=== PATIENT | female | born 1945 | race Caucasian/White ===

== ENCOUNTER → 2017-01-24 16:41 | Outpatient (CLI) | payer MEDICARE, OTHER | END | disposition home or self-care (01) | LOC: D.MAMMO 15:15 | DX: Z12.31 Encounter for screening mammogram for malignant neoplasm of breast (principal) ==

== ENCOUNTER 2017-08-27 08:20 | Outpatient (CLI) | payer MEDICARE, OTHER ==
[~2017-08-27] VITALS: Ht 160 cm; Wt 90.0 kg
--- NOTE | ~2017-08-27 | HEMODYNAMI ---
PATIENT:ARTURO HERNANDEZ MEDICAL RECORD: [id number] : 43 LOCATION:FLAVIO ADMISSION DATE: 08/27/17 Generatedon:08/27/201713:51 Patient name: ARTURO HERNANDEZ Patient #: [id number] SSN: D OB: 1945 Date of study: 08/27/2017 Page: Of Hemodynamic Procedure Report Patient Data Patient Demographics Procedure consent was obtained First Name: ARTURO Gender: Female Last Name: DAVID : 1945 Middle Initial: KAYLA Age: 71 year(s) Patient #: [id number] Race: Unknown Additional ID: [id number] Contact details [address]: [address] [place] [address] State: [place] City: [place] Zip code: [address] Past Medical History Allergies Allergen Reaction Date Comments Reported Other allergy 08/27/2017 Percocet, penicillin, codeine, sulfa, adhesive Admission Admission Data Admission Date: 08/27/2017 Admission Time: 8:20 Height (in.): 65 BSA: 1.99 (m2) Height (cm.): 165.1 BMI: 33.78 (kg/m2) Weight (lbs.): 203 Weight (kg.): 92.08 Lab Results Lab Result Date: 08/27/2017 Lab Result Time: 0:00 CBC Name Units Result Min Max Hemoglobin g/dl 9.9 *-(----)-- 13.5 17.5 Procedure Procedure Types Cath Procedure Diagnostic Procedure LHC Coronaries only FFR/IVUS Intra-Coronary IVUS Initial PCI Procedure Coronary Stent Miscellaneous Procedures Moderate Sedation up to 15 minutes Procedure Description Procedure Date Procedure Date: 08/27/2017 Procedure Start Time: 10:21 Procedure End Time: 10:41 Procedure Staff Name Function Jenny Hernandez RT Scrub Cristi Ahmadi MD Performing Physician Priya Chavez RT Monitor Kareen Hernandez RN Nurse Procedure Data Cath Procedure Fluoroscopy Diagnostic fluoroscopy Total fluoroscopy Time: 4.8 time: 4.8 min min Diagnostic fluoroscopy Total fluoroscopy dose: dose: 1026 mGy 1026 mGy Contrast Material Contrast Material Type Amount (ml) Isovue 300 115 Entry Location Entry Primary Successful Side Size Upsize Upsize Entry Closure Succes sful Closure Location (Fr) 1 (Fr) 2 (Fr) Remarks Device Remarks Femoral Right 5 Fr 6 Fr Exoseal artery Short Estimated blood loss: 10 ml Diagnostic catheters Device Type Used For End Catheter Placement MULTIPACK JL 4.0 5Fr Procedure catheter MULTIPACK 3DRC 5Fr Procedure catheter Procedure Complications No complications Procedure Medications Medication Administration Route Dosage 0.9% NaCl I.V. 100 ml/hr Oxygen NC 2 l/min Lidocaine 2% added to field 20 Heparin Flush Bag added to field 2 bags (1000units/500ml NS) Fentanyl I.V. 50 mcg Versed I.V. 1 mg Versed I.V. 1 mg Fentanyl I.V. 50 mcg Versed I.V. 1 mg Versed I.V. 1 mg Heparin Bolus I.V. 4000 units Integrilin (Bolus I.V. 7.9 ml 2mg/ml) Integrilin (Bolus wasted 2.1 ml 2mg/ml) Plavix P.O. 600 mg Hemodynamics Rest HGB: 9.9 (g/dl) O2 Consumption: Estimated: 182.13 (ml/min) O2 Consumption indexe d: Estimated:91.52 (ml/min/m) Heart Rate: 70 (bpm) Snapshots Pre Cath Intra NCS Post Cath Vital Signs Time Heart Resp SPO2 etCO2 NIBP Rhythm Pain Sedation Rate (ipm) (%) (mmHg) (mmHg) Status Level (bpm) 9:55:16 94 15 95 133/59(90) NSR 0 (11) 10(A) , No pain 9:59:36 69 15 95 36.6 121/56(92) NSR 0 (11) 10(A) , No pain 10:03:56 69 21 98 125/55(88) NSR 0 (11) 10(A) , No pain 10:08:15 69 16 97 123/59(91) NSR 0 (11) 10(A) , No pain 10:12:32 69 18 95 117/53(85) NSR 0 (11) 10(A) , No pain 10:16:50 69 18 95 111/54(87) NSR 0 (11) 10(A) , No pain 10:21:06 69 19 95 113/52(85) NSR 0 (11) 9(A) , No pain 10:25:23 75 16 97 124/57(94) NSR 0 (11) 9(A) , No pain 10:29:39 77 14 96 115/55(86) NSR 0 (11) 9(A) , No pain 10:33:53 69 16 97 109/55(88) NSR 0 (11) 10(A) , No pain 10:38:07 69 11 98 114/55(85) NSR 0 (11) 10(A) , No pain Medications Time Medication Route Dose Verified Delivered Reason Not es Effectiveness by by 9:59:41 0.9% NaCl I.V. 100ml/hr Cristi Kareen used for Galdino Hernandez RN procedure 9:59:52 Oxygen NC 2 l/min Cristi Kareen Per physician Galdino Hernandez RN 10:00:00 Lidocaine 2% added 20ml Cristi Cristi for local to vial Galdino Ahmadi MD anesthetic field 10:00:14 Heparin Flush added 2 bags Cristi Cristi used for Bag to Galdino Ahmadi MD procedure (1000units/500ml field NS) 10:16:32 Fentanyl I.V. 50 mcg Cristi Kareen for sedation Galdino Hernandez RN 10:16:41 Versed I.V. 1 mg Cristi Kareen for sedation Galdino Hernandez RN 10:18:04 Versed I.V. 1 mg Cristi Kareen for sedation Galdino Hernandez RN 10:18:12 Fentanyl I.V. 50 mcg Cristi Kareen for sedation Galdino Hernandez RN 10:20:49 Versed I.V. 1 mg Cristi Kareen for sedation Galdino Hernandez RN 10:22:46 Versed I.V. 1 mg Cristi Kareen for sedation Galdino Hernandez RN 10:22:54 Heparin Bolus I.V. 4000 Cristi Kareen for abbe ified units Galdino Hernandez RN anticoagulation b y 10:32:53 Integrilin I.V. 7.9 ml Cristi Kareen for (Bolus 2mg/ml) Galdino Hernandez RN antiplatelet therapy 10:33:11 Integrilin wasted 2.1 ml Cristi devries (Bolus 2mg/ml) Galdino Hernandez RN antiplatelet therapy 10:35:50 Plavix P.O. 600 mg Cristi Hernandez RN antiplatelet therapy Procedure Log Time Note 9:36:53 Patient Height : 65 inches 9:36:57 Patient Weight : 203 lbs 9:37:59 Diagnostic Cath status Elective 9:38:01 Jenny Hernandez RT(R) sent for patient. Start room use. 9:38:02 Time tracking: Regular hours 9:38:11 Plan of Care:Hemodynamics will remain stable., Cardiac rhythm will remain stable., Comfort level will be maintained., Respiratory function will remain adequate., Patient/ family verbilizes understanding of procedure., Procedure tolerated without complication., Recovers from procedure without complications.. 9:46:12 Lab Result : Hemoglobin 9.9 g/dl 9:53:52 Patient received from Pre/Post Procedure Room to [facility] Alert and oriented. Tansferred to table in Supine position. 9:53:53 Warm blankets applied, and jonathon hugger turned on for patient comfort. 9:53:54 Correct patient and procedure confirmed by team. 9:53:55 Signed procedure consent form obtained from patient. 9:53:56 ECG and BP/O2 sat monitors applied to patient. 9:54:03 Vital chart was started 9:54:12 Rhythm: paced 9:54:13 Full Disclosure recording started 9:55:00 H&P Date Dictated: 08/04/2017 Within 30 days and on chart., H&P Addendum completed by physician on day of procedure. (MUST COMPLETE FOR ALL OUTPATIENTS). 9:55:01 Pre-op teaching completed and patient verbalized understanding. 9:55:01 Pre-procedure instructions explained to patient. 9:55:03 Family in waiting room. 9:55:07 Patient NPO since Midnight. 9:55:41 Patient allergic to Other allergyPercocet, penicillin, codeine, sulfa, adhesive 9:55:48 Is the patient allergic to Iodine/contrast media? No. 9:55:50 Is patient on blood thinner?Yes 9:55:50 Was the patient premedicated? No 9:56:32 Patient states last dose of Coumadin was taken 08/21/17 9:56:35 Patient diabetic? No. 9:56:39 Previous problem with sedation/anesthesia? No ? 9:56:41 Snore? Yes 9:56:44 Sleep apnea? No 9:56:45 Deviated septum? No 9:56:46 Sticks out tongue? Yes 9:56:46 Opens mouth fully? Yes 9:57:08 Airway obstruction? No ? 9:57:11 Dentures? No ? 9:57:15 Pre procedure: right dorsailis pedis pulse 1+ Palpable, but thready & weak; easily obliterated 9:57:17 Pre procedure: left dorsailis pedis pulse 1+ Palpable, but thready & weak; easily obliterated 9:57:21 Patient pain scale 0/10 ?. 9:57:35 IV patent on arrival in left forearm with 0.9% NaCl at [facility]. 9:57:38 Lab results completed and on chart. 9:57:41 Right groin area was prepped with chlora-prep and draped in sterile fashion 9:57:42 Sharps counted by scrub and verified by R.N. 9:57:42 Alarms reviewed by R. N. 9:59:41 0.9% NaCl 100ml/hr I.V. was administered by Kareen Hernandez RN; used for procedure; 9:59:52 Oxygen 2 l/min NC was administered by Kareen Hernandez RN; Per physician; 10:00:00 Lidocaine 2% 20ml vial added to field was administered by Cristi Ahmadi MD; for local anesthetic; 10:00:14 Heparin Flush Bag (1000units/500ml NS) 2 bags added to field was administered by Cristi Ahmadi MD; used for procedure; 10:08:18 Baseline sample Acquired. 10:08:35 Physician paged 10:14:02 Zero performed for pressure channel P1 10:15:42 Physician arrived 10:15:44 --------ALL STOP TIME OUT------ 10:15:45 Final Timeout: patient, procedure, and site verified with staff and physician. All members of the team are in agreement. 10:15:49 Right groin site verified by team. 10:16:09 Physical assessment completed. ASA score P 2 - A patient with mild systemic disease as per Cristi Ahmadi MD. 10:16:15 Sedation plan: IV Moderate Sedation Medication:Versed, Fentanyl 10:16:32 Fentanyl 50 mcg I.V. was administered by Kareen Hernandez RN; for sedation; 10:16:41 Versed 1 mg I.V. was administered by Kareen Hernandez RN; for sedation; 10:18:04 Versed 1 mg I.V. was administered by Kareen Hernandez RN; for sedation; 10:18:12 Fentanyl 50 mcg I.V. was administered by Kareen Hernandez RN; for sedation; 10:20:49 Versed 1 mg I.V. was administered by Kareen Hernandez RN; for sedation; 10:21:21 Procedure started. 10:21:41 Use device set Femoral Dx 10:21:42 ACIST Syringe (53859) opened to sterile field. 10:21:43 Medline Cath Pack ([id number]) opened to sterile field. 10:21:43 Bag Decanter (2002S) opened to sterile field. 10:21:44 DIAGNOSTIC WIRE .035 260cm J wire (962316) opened to sterile field. 10:21:44 SHEATH 5FR [place] (CBP828) opened to sterile field. 10:21:45 ACIST Hand Control (91492) opened to sterile field. 10:21:46 Tegaderm 4 x 4 (1626W) opened to sterile field. 10:21:46 DIAGNOSTIC Multipack 5Fr catheter set (MR6367) opened to sterile field. 10:21:46 ACIST Manifold (47775) opened to sterile field. 10:21:47 PERCUTANEOUS ENTRY 19GA needle opened to sterile field. 10:21:58 Local anesthetic to right femoral artery with Lidocaine 2% by Cristi Ahmadi MD.INITIAL ACCESS ONLY 10:22:08 A 5 Fr sheath was inserted into the Right Femoral artery 10:22:46 Versed 1 mg I.V. was administered by Kareen Hernandez RN; for sedation; 10:22:54 Heparin Bolus 4000 units I.V. was administered by Kareen Hernandez RN; for anticoagulation; verified b y 10:23:09 A MULTIPACK JL 4.0 5Fr catheter was advanced over the wire and used for Procedure. 10:23:12 LCA angiography performed. 10:24:22 Catheter removed. 10:24:29 A MULTIPACK 3DRC 5Fr catheter was advanced over the wire and used for Procedure. 10:24:33 RCA angiography performed. 10::59 Catheter removed. 10:25:25 Proceeding to intervention. 10:25:36 Sheath upsized to a 6 Fr Short. 10:25:48 6 Fr XBLAD 3.5 guide catheter was inserted over the wire 10:26:57 whisper wire advanced. 10::59 Wire advanced across lesion. 10:27:02 IVUS catheter advanced over wire. 10:32:36 IVUS catheter removed over wire. 10:32:53 Integrilin (Bolus 2mg/ml) 7.9 ml I.V. was administered by Kareen Hernandez RN; for antiplatelet therapy; 10:33:10 Inflation Number: 1 A INTEGRITY RX 3.0 x 22 stent ([id number]) was prepped and advanced across the Mid LAD. The stent was deployed at 13 JOSÉ for 0:10 (min:sec). 10:33:11 Integrilin (Bolus 2mg/ml) 2.1 ml wasted was administered by Kareen Hernandez RN; for antiplatelet therapy; 10:33:41 GUIDE 6FR XBLAD 3.5 catheter ([id number]) opened to sterile field. 10:33:41 [place] IVUS Catheter (83490K) opened to sterile field. 10:33:42 WHISPER 190cm wire ([id number]) opened to sterile field. 10:33:43 INFLATOR Merit BasixCompak (NA5839) opened to sterile field. 10:33:44 SHEATH 6FR [place] (GAN865) opened to sterile field. 10:34:26 Inflation Number: 2 A INTEGRITY RX 2.5 x 22 stent ([id number]) was prepped and advanced across the Mid LAD. The stent was deployed at 11 JOSÉ for 0:10 (min:sec). 10:34:38 Inflation number: 3 The stent balloon was then re-inflated across the Mid LAD to 17 JOSÉ for 0:10 (min:sec). 10:35:09 EXOSEAL 6Fr (EX600) opened to sterile field. 10:35:50 Plavix 600 mg P.O. was administered by Kareen Hernandez RN; for antiplatelet therapy; 10:39:07 Sheath removed intact; hemostasis achieved with Exoseal to the Right Femoral artery. 10:39:10 Procedure ended.(Physican Out) 10:39:21 Fluoroscopy time 04.80 minutes. 10:39:25 Fluoroscopy dose: 1026 mGy 10:39:25 Flurop Dose total: 1026 10:39:28 Contrast amount:Isovue 300 115ml. 10:39:30 Sharps counted by scrub and verified by R.N. 10:39:32 Insertion/operative site no bleeding no hematoma. 10:39:36 Post-op/insertion site Right Femoral artery dressed using a 4 x 4 and Tegaderm. 10:39:38 Post Procedure Pulses reassessed and unchanged 10:39:46 Post-procedure physical assessment completed. ASA score P 2 - A patient with mild systemic disease as per Cristi Ahmadi MD. 10:39:50 Post procedure rhythm: unchanged. 10:39:53 Estimated blood loss: 10 ml 10:39:55 Post procedure instruction explained to patient.Patient verbalizes understanding. 10:40:21 Procedure type changed to Cath procedure, Diagnostic procedure, LHC, Coronaries only, FFR/IVUS, Intra-Coronary IVUS Initial, PCI procedure, Coronary Stent, Miscellaneous Procedures, Moderate Sedation up to 15 minutes 10:40:23 Procedure and supply charges have been captured, reviewed, submitted and are correct. 10:41:31 Procedure Complication : No complications 10:41:34 Vital chart was stopped 10:41:35 See physician's report for complete and final results. 10:41:38 Report given to Pre/Post Procedure Room. 10:41:40 Patient transfered to Pre/Post Procedure Room with Stretcher. 10:41:43 Full Disclosure recording stopped 10:41:43 Procedure ended. 10:41:46 End room use (Document Last) 10:41:52 ACC-PCI Only Patient was given prescriptions, or instructed by Cristi Ahmadi MD to start/continue the following medications upon discharge: Plavix Intervention Summary Intervention Notes Time ActionType Lesion and Equipment Action# Pressure Duration Attributes Used 10:33:10 Place stent Mid LAD INTEGRITY RX 1 13 00:10 3.0 x 22 stent ([id number]) 10:34:26 Place stent Mid LAD INTEGRITY RX 2 11 00:10 2.5 x 22 stent ([id number]) 10:34:38 Reinflate Mid LAD INTEGRITY RX 3 17 00:10 stent 2.5 x 22 balloon stent ([id number]) Device Usage Item Name Manufacture Quantity Catalog Hospital Part Current Minimal Lot# / Number Charge Number Stock Stock Serial# Code ACIST Acist 1 28588 328268 421368 439947 20 Syringe Medical (90547) Systems Inc Bag Decanter Microtek 1 2001S 759407 81136 670589 5 () Medical Inc. Medline Cath Cardinal 1 [id number] 854060 33475 544449 5 Pack Health ([id number]) SHEATH 5FR Terumo 1 FYJ555 258066 768445 301261 40 [place] (BHJ725) DIAGNOSTIC St Hai 1 357647 184973 197432 753353 30 WIRE .035 260cm J wire (473284) ACIST Hand Acist 1 01942 867158 346452 518805 5 Control Medical (90666) Systems Inc ACIST Acist 1 41990 390249 908827 846726 5 Manifold Medical (96036) Systems Inc DIAGNOSTIC Cardinal 1 LG3402 876562 79651 396329 30 Multipack Health 5Fr catheter set (XZ3003) Tegaderm 4 x 3M 1 1626W 099408 360861 567690 5 4 (1626W) PERCUTANEOUS Cook Medical 1 U66636 408460 146597 5 ENTRY 19GA needle MULTIPACK JL Cardinal 1 724678 5 4.0 5Fr Health catheter MULTIPACK Cardinal 1 952316 5 3DRC 5Fr Health catheter INTEGRITY RX Medtronic 1 [id number] 662361 805852 044414 5 [id number] 3.0 x 22 stent ([id number]) [place] 1 09560O 579640 991311 651082 8 [place]ag[place] IVUS Catheter (80148Y) GUIDE 6FR Cardinal 1 [id number] 672078 802123 634184 10 XBLAD 3.5 Health catheter (27270483) WHISPER Hendrix 1 [id number] 770376 866058 408577 5 190cm wire Vascular (2193800SL) INFLATOR Go!Foton 1 JZ4781 287645 592757 902106 15 Go!Foton Medical BasixCompak (CD0188) SHEATH 6FR Terumo 1 HJP244 228308 219667 001867 40 [place] (LRY278) INTEGRITY RX Medtronic 1 [id number] 008685 509348 241184 5 [id number] 2.5 x 22 stent ([id number]) EXOSEAL 6Fr Cardinal 1 EX600 501676 703886 529756 10 (EX600) Health Signature Audit [place] Stage Time Signature Unsigned Intra-Procedure 08/27/2017 Priya Chavez 10:42:06 AM RT(R) Signatures Monitor : Priya Chavez Signature : RT Date : Time : [place] [id number] [place] [address]
[2017-08-27] MEDS ORDERED: TRAZODONE HCL150 MG PO (09:07)
[2017-08-27] MEDS ORDERED: LIPITOR20 MG PO (09:08)
[2017-08-27] MEDS ORDERED: PREVACID30 MG PO (09:08)
[2017-08-27] MEDS ORDERED: NORVASC10 MG PO (09:08)
[2017-08-27] MEDS ORDERED: ATIVAN1 MG PO (09:09)
[2017-08-27] MEDS ORDERED: BUPROPION XL150 MG PO (09:09)
[2017-08-27] MEDS ORDERED: COUMADIN2.5 MG PO (09:09)
[2017-08-27] MEDS ORDERED: ULTRAM50 MG PO (09:10)
[2017-08-27] MEDS ORDERED: FOLIC ACID1 MG PO (09:10)
[2017-08-27] MEDS ORDERED: ZESTRIL40 MG PO (09:10)
[2017-08-27] MEDS ORDERED: FUROSEMIDE40 MG PO (09:10)
[2017-08-27] MEDS ORDERED: PROZAC20 MG PO (09:10)
[2017-08-27 09:16] VITALS: BP 113/49; Ht 160 cm; Wt 90.0 kg
[2017-08-27 09:42] LABS: BASOPHILS 0.5 % (0-2); EOSINOPHILS 3.4 % (0-7); HEMATOCRIT 32.4 % (36.0-48.0); HEMOGLOBIN 9.9 g/dL (12-16); IMMATURE GRANULOCYTES 0.2 % (0-5); LYMPHOCYTES 21.4 % (15-50); MCH 25.6 pg (26.0-34.0); MCHC 30.6 g/dL (31.0-37.0); MCV 83.7 fL (80.0-100.0); MEAN PLATELET VOLUME 9.5 fL (7.4-10.4); MONOCYTES 10.8 % (2-11); NEUTROPHILS 63.7 % (40-80); PLATELET COUNT 120 10x3/uL (130-400); RBC 3.87 10x6/uL (4.00-5.40); RDW 16.1 % (11.5-14.5); WBC 4.2 10x3/uL (4.8-10.8)
[2017-08-27 09:48] LABS: INR 1.06 (0.85-1.17); PROTIME 13.4 SECONDS (11.6-15.0)
[2017-08-27 09:49] LABS: ANION GAP 12.4 mmol/L (8-16); CALCIUM 7.9 mg/dL (8.5-10.1); CARBON DIOXIDE 31.6 mmol/L (21.0-32.0); CREATININE - SERUM 1.2 mg/dL (0.6-1.3)
--- NOTE | 2017-08-27 11:15 | NUR ---
1115 DRESSING CDI, AREA SOFT AND NONTENDER. PEDAL PULSES PALPABLE, CALL LIGHT IN REACH. PT DENIES ANY C/O AT THIS TIME.
--- NOTE | 2017-08-27 11:46 | NUR ---
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 DENIES ANY C/O CHEST PAIN OR NAUSEA. DRESSING TO RIGHT GROIN IS CDI, AREA IS SOFT AND NONTENDER. PEDAL PULSES PALPABLE CAP REFILL IS BRISK. CALL LIGHT IN REACH. PO FLUIDS SERVED. NO FAMILY AT HOSPITAL, INSTRUCTED PT TO CALL FOR NEEDS AND PT VERBALIZES UNDERSTANDING.
--- NOTE | 2017-08-27 11:48 | NUR ---
1130 PT LARRY PO FLUIDS WITH NO C/O,. DRESSING RIGHT GROIN IS CDI, AREA IS SOFT AND NONTENDER. PEDAL PULSES PALPABLE. CALL LIGHT IN REACH. NSR, DENIES ANY C/O CHEST PAIN.
--- NOTE | 2017-08-27 11:49 | NUR ---
1145 DRESSING CDI, AREA SOFT AND NONTENDER. NSR, DENIES ANY C/O CHEST PAIN. CALL LIGHT IS IN REACH.
--- NOTE | 2017-08-27 12:45 | NUR ---
1230 PT SLEEPING, AWAKENS EASILY. DENIES ANY C/O. DRESSING RIGHT GROIN IS CDI,AREA SOFT AND NONTENDER. PEDAL PULSES PALPABLE.
--- NOTE | 2017-08-27 13:04 | NUR ---
DRESSING TO RIGHT GROIN IS CDI, AREA SOFT AND NONTENDER. PEDAL PULSES PALPABLE. PT DENIES ANY C/O.
[2017-08-27] MEDS ORDERED: PLAVIX75 MG PO (14:16)
--- NOTE | 2017-08-27 14:24 | NUR ---
HOB ELEVATED 45 DEGREES, SANDWICH AND PO FLUIDS SERVED. DRESSING TO RIGHT GROIN IS CDI. PT DENIES ANY C/O. CALL LIGHT IN REACH.
--- NOTE | 2017-08-27 14:45 | NUR ---
1445 ASSISTED PT WITH DRESSING FOR DC TO HOME. DRESSING TO RIGHT GROIN REMAINS CDI, AREA IS SOFT AND NONTENDER. IV DC'D WITH CATH INTACT.
--- NOTE | 2017-08-27 15:39 | NUR ---
1500 ASSISTED PT TO THE BATHROOM, PT VOIDED QS. DC INSTRUCTIONS HAVE BEEN REVIEWED AND COPIES TO PT. PLAVIX PRESCRIPTION, STENT CARD AND HOMECARE INSTRUCTIONS TO PATIENT. PT ESCORTED TO PRIVATE AUTO VIA WC BY NURSE WITH FRIEND DRIVING HER HOME.
--- NOTE | 2017-08-27 15:46 | OP ---
PATIENT NAME: ARTURO HERNANDEZ MEDICAL RECORD: [id number] :43 LOCATION:D.CAT ADMISSION DATE: SURGEON: GIANA PETERSON MD DATE OF OPERATION: 08/27/2017 PROCEDURES: 1. PTCA stent to LAD. 2. Intravascular ultrasound. 3. Left heart catheterization. 4. Selective coronary angiography. 5. Left ventriculogram. INDICATION: Angina and coronary artery disease. PROCEDURE IN DETAIL: After informed consent was obtained and after detailed explanation of risks, benefits as well as alternative therapies, the patient elected to proceed with angiogram and angioplasty. The right femoral area was prepped and draped in normal sterile fashion. The right femoral artery was cannulated via modified Seldinger technique with placement of 6-Georgian sheath. All catheters exchanged through this sheath. FINDINGS: Left ventriculogram was performed in standard 30-degree SHARMA view, reveals good cardiac wall motion throughout all segments. Overall ejection fraction estimated 60%. SELECTIVE CORONARY ANGIOGRAPHY: 1. Left main showed no significant angiographic disease. 2. Left anterior descending has greater than 70% stenosis proximally confirmed by intravascular ultrasound. 3. Left circumflex shows moderate irregularities, but no flow-limiting stenosis. 4. Right coronary artery has moderate irregularities, but no flow-limiting stenosis. PTCA STENT OF THE LAD: The stent used was a 3.0 x 22 and 2.5 x 22, both Integrity stents. Result was 0% residual stenosis. OVERALL IMPRESSION: Successful percutaneous transluminal coronary angioplasty stent of the left anterior descending going from greater than 70% initial stenosis proximally to 0% residual stenosis. TRANSINT:[id number] Voice Confirmation ID: [id number] DOCUMENT ID: [id number] GIANA PETERSON MD at 1546 CC: [id number] DICTATION DATE: 08/27/17 1043 FOURDRINIER MACHINE TENDER: 08/27/17 1235 [facility] CLI 08/27/17 [place] [id number]
== END 2017-08-27 15:00 | disposition home or self-care (01) ==
LOC: D.CATH 08:20
PROVIDERS: Internal Medicine Interventional Cardiology
DX: I25.119 Atherosclerotic heart disease of native coronary artery with unspecified angina pectoris (principal); R06.02 Shortness of breath; I49.5 Sick sinus syndrome; Z95.0 Presence of cardiac pacemaker; Z01.812 Encounter for preprocedural laboratory examination

== ENCOUNTER 2017-11-02 18:42 | Emergency (ER) | payer MEDICARE, OTHER ==
[2017-08-27 09:16] VITALS: BMI 35.1
[~2017-11-02 18:42] MED LIST: ATIVAN1 MG PO; BUPROPION XL150 MG PO; COUMADIN2.5 MG PO; FOLIC ACID1 MG PO; FUROSEMIDE40 MG PO; LIPITOR20 MG PO; NORVASC10 MG PO; PLAVIX75 MG PO; PREVACID30 MG PO; PROZAC20 MG PO; TRAZODONE HCL150 MG PO; ULTRAM50 MG PO; ZESTRIL40 MG PO
[2017-11-02 19:32] LABS: BASOPHILS 0.7 % (0-2); EOSINOPHILS 3.7 % (0-7); HEMATOCRIT 29.5 % (36.0-48.0); IMMATURE GRANULOCYTES 0.2 % (0-5); LYMPHOCYTES 24.1 % (15-50); MCH 25.4 pg (26.0-34.0); MCHC 30.5 g/dL (31.0-37.0); MCV 83.1 fL (80.0-100.0); MEAN PLATELET VOLUME 9.9 fL (7.4-10.4); MONOCYTES 11.7 % (2-11); NEUTROPHILS 59.6 % (40-80); PLATELET COUNT 113 10x3/uL (130-400); RBC 3.55 10x6/uL (4.00-5.40); RDW 17.4 % (11.5-14.5)
[2017-11-02 20:11] LABS: ALKALINE PHOSPHATASE 121 U/L (46-116); ALT (SGPT) 52 U/L (10-68); BILIRUBIN - TOTAL 0.27 mg/dL (0.2-1.3); CALC OSMOLALITY 280 mosm/kg (275-300); CALCIUM 8.4 mg/dL (8.5-10.1); CARBON DIOXIDE 26.1 mmol/L (21.0-32.0); CHLORIDE - SERUM 107 mmol/L (98-107); GLUCOSE 84 mg/dL (74-106); POTASSIUM - SERUM 3.7 mmol/L (3.5-5.1); PROTEIN - SERUM 6.3 g/dL (6.4-8.2); SODIUM 141 mmol/L (136-145); UREA NITROGEN 14 mg/dL (7-18); eGFR NON AFRICAN AMERICAN 58 mL/min (90-120)
[2017-11-02 20:20] LABS: CKMB 0.9 U/L (0.0-3.6); CREATINE KINASE 54 UL (21-215); PRO BNP 751 pg/mL (0-125)
[2017-11-02 20:24] LABS: TROPONIN-I < 0.017 ng/mL (0.000-0.060)
[2017-11-02 20:57] LABS: APTT 37.5 SECONDS (22.8-39.4); INR 1.5 (0.85-1.17); PROTIME 17.6 SECONDS (11.6-15.0)
== END 2017-11-02 21:00 | disposition home or self-care (01) ==
LOC: D.ER 18:42
PROVIDERS: Family Medicine
DX: R07.89 Other chest pain (principal); I10 Essential (primary) hypertension; I45.10 Unspecified right bundle-branch block

== ENCOUNTER → 2018-01-09 15:32 | Outpatient (CLI) | payer MEDICARE, OTHER ==
[2017-08-27 09:16] VITALS: BMI 35.1
== END | disposition home or self-care (01) ==
LOC: D.US 15:30
DX: R60.0 Localized edema (principal)

== ENCOUNTER 2018-02-14 15:11 | Emergency (ER) | payer MEDICARE, OTHER ==
[~2018-02-14] VITALS: Ht 160 cm; Wt 90.9 kg
[2018-02-14 15:20] VITALS: Ht 160 cm; Wt 90.9 kg
[2018-02-14] MEDS ORDERED: COUMADIN5 MG PO (15:24)
[2018-02-14 15:53] LABS: BASOPHILS 0.6 % (0-2); EOSINOPHILS 3.9 % (0-7); HEMOGLOBIN 10.5 g/dL (12-16); LYMPHOCYTES 17.3 % (15-50); MCHC 30.9 g/dL (31.0-37.0); MCV 84.2 fL (80.0-100.0); MONOCYTES 8.9 % (2-11); NEUTROPHILS 69.3 % (40-80); PLATELET COUNT 100 10x3/uL (130-400); RBC 4.04 10x6/uL (4.00-5.40); RDW 16.9 % (11.5-14.5); WBC 5.2 10x3/uL (4.8-10.8)
[2018-02-14 16:04] LABS: APTT 39.8 SECONDS (22.8-39.4); INR 1.39 (0.85-1.17); PROTIME 16.5 SECONDS (11.6-15.0)
[2018-02-14 16:07] LABS: ANION GAP 12.5 mmol/L (8-16); BILIRUBIN - TOTAL 0.59 mg/dL (0.2-1.3); CALCIUM 8.7 mg/dL (8.5-10.1); CREATININE - SERUM 1.1 mg/dL (0.6-1.3); POTASSIUM - SERUM 3.5 mmol/L (3.5-5.1); PROTEIN - SERUM 6.3 g/dL (6.4-8.2)
[2018-02-14 16:35] LABS: CKMB 1.4 U/L (0.0-3.6); CREATINE KINASE 70 UL (21-215)
[2018-02-14 16:40] LABS: C-REACTIVE PROTEIN < 0.2 mg/dL (0.0-0.9); TROPONIN-I < 0.017 ng/mL (0.000-0.060)
[2018-02-14 16:59] LABS: APPEARANCE CLEAR (CLEAR); BACTERIA MODERATE /hpf (NONE SEEN); BILIRUBIN NEGATIVE (NEGATIVE); CALCIUM OXALATE CRYSTALS RARE /hpf (NONE SEEN); COLOR DK YELLOW (YELLOW); GLUCOSE NEGATIVE (NEGATIVE); KETONE NEGATIVE (NEGATIVE); MUCUS >1+ /lpf (NONE SEEN); NITRITE NEGATIVE (NEGATIVE); PROTEIN NEGATIVE (NEGATIVE); RED CELLS - URINE OCC /hpf (0-5); UROBILINOGEN NORMAL (NORMAL); WHITE CELLS - URINE 0-5 /hpf (0-5)
[2018-02-14 18:47] VITALS: BP 142/78
[2018-02-18 19:12] LABS: LYME WB - IGG P18 AB Absent (()); LYME WB - IGG P23 AB Absent (()); LYME WB - IGG P28 AB Absent (()); LYME WB - IGG P30 AB Absent (()); LYME WB - IGG P39 AB Absent (()); LYME WB - IGG P41 AB Present (()); LYME WB - IGG P45 AB Absent (()); LYME WB - IGG P58 AB Absent (()); LYME WB - IGG P66 AB Absent (()); LYME WB - IGG P93 AB Absent (()); LYME WB - IGG WB INTERP Negative (()); LYME WB - IGM P23 AB Absent (()); LYME WB - IGM P39 AB Absent (()); LYME WB - IGM P41 AB Absent (()); LYME WB - IGM WB INTERP Negative (())
[2018-02-19 03:12] LABS: RMSF IGM 1.29 index (0.00-0.89)
== END 2018-02-14 18:49 | disposition home or self-care (01) ==
LOC: D.ER 15:11
PROVIDERS: Emergency Medicine
DX: M79.601 Pain in right arm (principal); T14.8XXA Other injury of unspecified body region, initial encounter; W57.XXXA Bitten or stung by nonvenomous insect and other nonvenomous arthropods, initial encounter; Y93.89 Activity, other specified; Y92.89 Other specified places as the place of occurrence of the external cause; S41.111A Laceration without foreign body of right upper arm, initial encounter; Z86.73 Personal history of transient ischemic attack (TIA), and cerebral infarction without residual deficits; I10 Essential (primary) hypertension; I50.9 Heart failure, unspecified; K21.9 Gastro-esophageal reflux disease without esophagitis

== ENCOUNTER 2018-05-18 12:37 | Emergency (ER) | payer MEDICARE, OTHER ==
[~2018-05-18] VITALS: Ht 160 cm; Wt 89.1 kg
[~2018-05-18 12:37] MED LIST changes: +COUMADIN5 MG PO
[2018-05-18 12:50] VITALS: Ht 160 cm; Wt 89.1 kg
[2018-05-18] MEDS ORDERED: CYCLOBENZAPRINE10 MG PO (17:27)
[2018-05-18 17:50] VITALS: BP 131/64
[2018-05-18 19:36] LABS: BASOPHILS 0.5 % (0-2); EOSINOPHILS 4.4 % (0-7); HEMATOCRIT 37.6 % (36.0-48.0); HEMOGLOBIN 12.3 g/dL (12-16); IMMATURE GRANULOCYTES 0.2 % (0-5); LYMPHOCYTES 20.9 % (15-50); MCH 30.7 pg (26.0-34.0); MCHC 32.7 g/dL (31.0-37.0); MCV 93.8 fL (80.0-100.0); MEAN PLATELET VOLUME 10.2 fL (7.4-10.4); MONOCYTES 7.5 % (2-11); NEUTROPHILS 66.5 % (40-80); PLATELET COUNT 85 10x3/uL (130-400); RBC 4.01 10x6/uL (4.00-5.40); WBC 5.9 10x3/uL (4.8-10.8)
[2018-05-18 19:54] LABS: BILIRUBIN - TOTAL 0.44 mg/dL (0.2-1.3); CALCIUM 8.5 mg/dL (8.5-10.1); CARBON DIOXIDE 26.8 mmol/L (21.0-32.0); POTASSIUM - SERUM 3.8 mmol/L (3.5-5.1); PROTEIN - SERUM 6.5 g/dL (6.4-8.2)
== END 2018-05-18 17:50 | disposition home or self-care (01) ==
LOC: D.ER 12:37
PROVIDERS: Family Medicine
DX: S32.059A Unspecified fracture of fifth lumbar vertebra, initial encounter for closed fracture (principal); X50.9XXA Other and unspecified overexertion or strenuous movements or postures, initial encounter; Y93.89 Activity, other specified; Y92.019 Unspecified place in single-family (private) house as the place of occurrence of the external cause; Z86.73 Personal history of transient ischemic attack (TIA), and cerebral infarction without residual deficits; I11.0 Hypertensive heart disease with heart failure; I50.9 Heart failure, unspecified; Z95.0 Presence of cardiac pacemaker

== ENCOUNTER 2018-05-18 18:50 | Emergency (ER) | payer MEDICARE, OTHER ==
[2018-05-18 18:50] VITALS: Ht 160 cm
[~2018-05-18 18:50] MED LIST changes: +CYCLOBENZAPRINE10 MG PO
[2018-05-18 21:22] VITALS: BP 134/68
== END 2018-05-19 00:30 | disposition other institution (70) ==
LOC: D.ER 18:50
DX: S32.059A Unspecified fracture of fifth lumbar vertebra, initial encounter for closed fracture (principal); X50.9XXA Other and unspecified overexertion or strenuous movements or postures, initial encounter; Y93.89 Activity, other specified; Y92.019 Unspecified place in single-family (private) house as the place of occurrence of the external cause; Z86.73 Personal history of transient ischemic attack (TIA), and cerebral infarction without residual deficits; I10 Essential (primary) hypertension; Z95.0 Presence of cardiac pacemaker

== ENCOUNTER 2018-05-19 19:11 | Inpatient (IN) | payer MEDICARE, OTHER ==
[~2018-05-19] VITALS: Ht 160 cm; Wt 88.9 kg
--- NOTE | ~2018-05-19 | CN ---
PATIENT NAME:ARTURO HERNANDEZ MEDICAL RECORD: [id number] : 43 LOCATION:D.MS [facility] ADMIT DATE: 05/19/18 ACCOUNT: [id number] CONSULTING PHYSICIAN: ED MULLINS MD REFERRING PHYSICIAN: NUBIA VERGARA MD DATE OF CONSULTATION: 05/20/2018 PSYCHIATRIC CONSULTATION IDENTIFYING DATA: The patient is 72 years old and she is admitted to the hospital on a voluntary basis because of an acute mental status change. She also has a compression fracture. CHIEF COMPLAINT: Confusion. HISTORY OF PRESENT ILLNESS: The patient's history is a little convoluted and history she gives me varies a little bit from the history in the record and minor details, but the overall point is she hurt her back recently and she has been in a lot of pain. She came to the hospital, felt like no one was helping her, and left AMA. A little while later, she showed up at Dr. Grayson's office very confused and he sent her here for hospitalization. She indicates that she was confused, but it was only because she had been in so much pain and she had not slept for a couple of days. I did not witness the event. She clearly is minimizing what happened and the records indicate that she was not sleepy, but confused. Right now, she is not confused and talking to me appropriately. She has a relatively normal mental status exam that I will detail below. She endorses a lot of depression and anxiety but not symptoms that would merit an inpatient care or present her as a high risk for self-harm or harming others. She denies substance abuse. MENTAL STATUS EXAMINATION: The patient is awake; alert; and oriented to person, place, time, and situation. Her mood is depressed. Her affect is appropriate. Thought processes are goal directed. Memory, concentration, and abstraction abilities are intact. She denies any intent to harm herself or others and she denies psychotic symptoms. ASSESSMENT: 1. Delirium, resolved. 2. Major depression, partially treated. PLAN: The patient is not acutely dangerous to herself or others and is showing no evidence of significant cognitive impairment. I do not see evidence of dementia. I did not witness the events that occurred recently; however, I would strongly suspect that this was a delirium induced by multiple medications that she was taking. She apparently has a long history of anxiety and has been on Ativan for a long time. She has also been recently taking narcotics for the back pain along with Flexeril. Probably, she has been in pain and was not sleeping as she said. She may have overtaken some of her medicine, it is unclear. Somewhere in this convoluted story, she somehow ended up driving to [place], but also tells me that she does not drive in [place], so I am not sure what to make of that. Other than this though, she is presenting a clear sensorium with some problems with depression and anxiety, but again she is not out of touch with reality and has no evidence of acute or direct dangerousness. My impression is she certainly does have a long history of anxiety and depression and I would recommend outpatient psychiatric care with CONSULT REPORT [id number] ARTURO HERNANDEZ either Dr. Fung or Dr. Paredes. TRANSINT:[id number] Voice Confirmation ID: [id number] DOCUMENT ID: [id number] ED MULLINS MD at 1305 CC: [id number] DICTATION DATE: 05/20/18 174 HIRED WORKER: 05/20/18 1837 ADM IN [facility] [address] [place] [id number]
--- NOTE | ~2018-05-19 | OP ---
PATIENT NAME: ARTURO HERNANDEZ MEDICAL RECORD: [id number] :43 LOCATION:[id number] ADMISSION DATE:05/19/18 SURGEON: ALEXIS GRAYSON MD DATE OF OPERATION: 05/21/2018 PREOPERATIVE DIAGNOSIS: L5 osteoporotic compression fracture. POSTOPERATIVE DIAGNOSIS: L5 osteoporotic compression fracture. PROCEDURE: L5 kyphoplasty. SURGEON: Alexis Grayson MD DESCRIPTION OF TECHNIQUE: After induction of TIVA, the patient was rolled prone on chest and hip rolls. Lumbar spine was prepped and draped in usual sterile fashion. On AP and lateral fluoro, the L5 pedicles were cannulated under fluoroscopic control. Kyphoplasty balloons were advanced through the cannula and inflated under fluoroscopic control. The balloons were deflated. The voids created were backfilled with methyl methacralate bone cement. Good position of the cement was confirmed on x-ray. Cannulae were withdrawn and final AP and lateral film showed good position of the cement. The patient was awakened in good condition and taken to recovery. All counts were reported as correct. Estimated blood loss was minimal. TRANSINT:[id number] Voice Confirmation ID: [id number] DOCUMENT ID: [id number] ALEXIS GRAYSON MD at 0837 CC: [id number] DICTATION DATE: 05/21/18 1639 CHILD PSYCHOLOGIST: 05/21/18 1700 ADM IN [place] [id number]
[2018-05-19 20:09] LABS: INR 2.05 (0.85-1.17); PROTIME 22.5 SECONDS (11.6-15.0)
[2018-05-19 20:14] LABS: ALKALINE PHOSPHATASE 79 U/L (46-116); ALT (SGPT) 57 U/L (10-68); BASOPHILS 0.4 % (0-2); BILIRUBIN - TOTAL 0.99 mg/dL (0.2-1.3); CALC OSMOLALITY 285 mosm/kg (275-300); CALCIUM 8.3 mg/dL (8.5-10.1); CARBON DIOXIDE 28.9 mmol/L (21.0-32.0); CHLORIDE - SERUM 104 mmol/L (98-107); CREATININE - SERUM 1.1 mg/dL (0.6-1.3); EOSINOPHILS 2.7 % (0-7); GLUCOSE 101 mg/dL (74-106); HEMATOCRIT 36.9 % (36.0-48.0); HEMOGLOBIN 12.2 g/dL (12-16); IMMATURE GRANULOCYTES 0.2 % (0-5); LYMPHOCYTES 13.2 % (15-50); MCH 30.5 pg (26.0-34.0); MCHC 33.1 g/dL (31.0-37.0); MCV 92.3 fL (80.0-100.0); MEAN PLATELET VOLUME 10.2 fL (7.4-10.4); MONOCYTES 6.4 % (2-11); NEUTROPHILS 77.1 % (40-80); PLATELET COUNT 89 10x3/uL (130-400); POTASSIUM - SERUM 3.4 mmol/L (3.5-5.1); PROTEIN - SERUM 6.4 g/dL (6.4-8.2); SODIUM 143 mmol/L (136-145); UREA NITROGEN 15 mg/dL (7-18); WBC 5.6 10x3/uL (4.8-10.8); eGFR NON AFRICAN AMERICAN 51 mL/min (90-120)
[2018-05-19 20:26] LABS: CKMB 1.7 U/L (0.0-3.6); CREATINE KINASE 166 UL (21-215); PRO BNP 1203 pg/mL (0-125); THYROID STIMULATING HORMONE 2.04 uIU/mL (0.36-3.74)
[2018-05-19 20:30] VITALS: BP 129/51
[2018-05-19 20:33] LABS: TROPONIN-I 0.016 ng/mL (0.000-0.060)
[2018-05-19 20:55] LABS: APPEARANCE CLEAR (CLEAR); BILIRUBIN NEGATIVE (NEGATIVE); COLOR YELLOW (YELLOW); GLUCOSE NEGATIVE (NEGATIVE); KETONE NEGATIVE (NEGATIVE); NITRITE NEGATIVE (NEGATIVE); PROTEIN NEGATIVE (NEGATIVE); UROBILINOGEN NORMAL (NORMAL)
[2018-05-19 21:30] VITALS: BP 136/53
[2018-05-20 00:09] VITALS: BP 133/67; BMI 34.8
[2018-05-20 05:07] VITALS: BP 134/64
[2018-05-20 05:08] LABS: BASOPHILS 0.2 % (0-2); EOSINOPHILS 0 % (0-7); HEMATOCRIT 34.8 % (36.0-48.0); HEMOGLOBIN 11.6 g/dL (12-16); IMMATURE GRANULOCYTES 0.2 % (0-5); LYMPHOCYTES 11.3 % (15-50); MCH 30.3 pg (26.0-34.0); MCHC 33.3 g/dL (31.0-37.0); MCV 90.9 fL (80.0-100.0); MEAN PLATELET VOLUME 9.8 fL (7.4-10.4); MONOCYTES 2.7 % (2-11); NEUTROPHILS 85.6 % (40-80); PLATELET COUNT 82 10x3/uL (130-400); RBC 3.83 10x6/uL (4.00-5.40); RDW 15.4 % (11.5-14.5); WBC 4.4 10x3/uL (4.8-10.8)
[2018-05-20 05:44] LABS: INR 2.03 (0.85-1.17); PROTIME 22.4 SECONDS (11.6-15.0)
[2018-05-20 05:45] LABS: APTT 41.9 SECONDS (22.8-39.4)
[2018-05-20 05:46] LABS: ALBUMIN 2.6 g/dL (3.4-5.0); ANION GAP 13.8 mmol/L (8-16); BILIRUBIN - TOTAL 0.61 mg/dL (0.2-1.3); CALCIUM 8.2 mg/dL (8.5-10.1); CARBON DIOXIDE 26.8 mmol/L (21.0-32.0); POTASSIUM - SERUM 3.6 mmol/L (3.5-5.1); PROTEIN - SERUM 5.8 g/dL (6.4-8.2)
[2018-05-20 08:48] VITALS: BP 122/46
[2018-05-20 12:10] VITALS: BP 139/53
[2018-05-20 12:13] VITALS: Ht 160 cm; Wt 88.9 kg
[2018-05-20 16:57] VITALS: BP 130/62
[2018-05-20 21:11] VITALS: BP 137/48
[2018-05-21 06:26] VITALS: BP 145/73
[2018-05-21 06:38] LABS: BASOPHILS 0.1 % (0-2); EOSINOPHILS 0.1 % (0-7); HEMATOCRIT 35.9 % (36.0-48.0); IMMATURE GRANULOCYTES 0.3 % (0-5); LYMPHOCYTES 9.9 % (15-50); MCH 30.4 pg (26.0-34.0); MCHC 33.4 g/dL (31.0-37.0); MCV 90.9 fL (80.0-100.0); MEAN PLATELET VOLUME 10.2 fL (7.4-10.4); MONOCYTES 5.6 % (2-11); RBC 3.95 10x6/uL (4.00-5.40); RDW 15.3 % (11.5-14.5)
[2018-05-21 06:55] LABS: PLATELET COUNT 109 10x3/uL (130-400); WBC 7.5 10x3/uL (4.8-10.8)
[2018-05-21 07:12] LABS: INR 1.37 (0.85-1.17); PROTIME 16.4 SECONDS (11.6-15.0)
[2018-05-21 07:31] LABS: ANION GAP 13.2 mmol/L (8-16); BILIRUBIN - TOTAL 0.72 mg/dL (0.2-1.3); CALCIUM 8.4 mg/dL (8.5-10.1); CARBON DIOXIDE 28.9 mmol/L (21.0-32.0); POTASSIUM - SERUM 3.1 mmol/L (3.5-5.1); PROTEIN - SERUM 6.2 g/dL (6.4-8.2)
[2018-05-21 08:45] VITALS: BP 147/51
[2018-05-21 13:41] VITALS: BP 143/47
[2018-05-21 18:26] VITALS: BP 121/52
[2018-05-21 23:12] VITALS: BP 122/73
[2018-05-22 04:44] VITALS: BP 121/57
[2018-05-22 05:38] LABS: BASOPHILS 0 % (0-2); EOSINOPHILS 0.6 % (0-7); HEMATOCRIT 34.3 % (36.0-48.0); HEMOGLOBIN 11.4 g/dL (12-16); IMMATURE GRANULOCYTES 0.4 % (0-5); LYMPHOCYTES 14.7 % (15-50); MCH 30.2 pg (26.0-34.0); MCHC 33.2 g/dL (31.0-37.0); MONOCYTES 10.4 % (2-11); NEUTROPHILS 73.9 % (40-80); PLATELET COUNT 97 10x3/uL (130-400); RBC 3.77 10x6/uL (4.00-5.40); RDW 15.3 % (11.5-14.5)
[2018-05-22 05:39] LABS: WBC 4.9 10x3/uL (4.8-10.8)
[2018-05-22 06:27] LABS: ALBUMIN 2.9 g/dL (3.4-5.0); BILIRUBIN - TOTAL 2.01 mg/dL (0.2-1.3); CALCIUM 8.1 mg/dL (8.5-10.1); CARBON DIOXIDE 33.8 mmol/L (21.0-32.0); CREATININE - SERUM 0.9 mg/dL (0.6-1.3); PROTEIN - SERUM 6.1 g/dL (6.4-8.2)
[2018-05-22 06:36] LABS: ANION GAP 11.8 mmol/L (8-16); POTASSIUM - SERUM 2.6 mmol/L (3.5-5.1)
[2018-05-22 08:36] VITALS: BP 144/70
[2018-05-22 10:16] LABS: MAGNESIUM - SERUM 1.5 mg/dL (1.8-2.4); PHOSPHOROUS 4.5 mg/dL (2.5-4.9)
[2018-05-22 12:07] VITALS: BP 155/53
[2018-05-22 22:28] VITALS: BP 115/58
[2018-05-23 04:59] VITALS: BP 130/60
[2018-05-23 05:22] LABS: BASOPHILS 0.3 % (0-2); EOSINOPHILS 1.1 % (0-7); HEMATOCRIT 38.2 % (36.0-48.0); HEMOGLOBIN 12.6 g/dL (12-16); IMMATURE GRANULOCYTES 0.3 % (0-5); LYMPHOCYTES 15.2 % (15-50); MCH 30.1 pg (26.0-34.0); MCV 91.2 fL (80.0-100.0); MEAN PLATELET VOLUME 10.1 fL (7.4-10.4); MONOCYTES 12.5 % (2-11); NEUTROPHILS 70.6 % (40-80); PLATELET COUNT 112 10x3/uL (130-400); RBC 4.19 10x6/uL (4.00-5.40); RDW 15.5 % (11.5-14.5)
[2018-05-23 05:28] LABS: WBC 7.1 10x3/uL (4.8-10.8)
[2018-05-23 05:46] LABS: ALBUMIN 3.1 g/dL (3.4-5.0); ANION GAP 12.4 mmol/L (8-16); BILIRUBIN - TOTAL 1.74 mg/dL (0.2-1.3); CALCIUM 8.1 mg/dL (8.5-10.1); CARBON DIOXIDE 30.8 mmol/L (21.0-32.0); CREATININE - SERUM 1.1 mg/dL (0.6-1.3); POTASSIUM - SERUM 3.2 mmol/L (3.5-5.1); PROTEIN - SERUM 6.4 g/dL (6.4-8.2)
[2018-05-23 06:58] VITALS: BP 150/56
[2018-05-23 16:14] VITALS: BP 152/67
[2018-05-23 20:27] VITALS: BP 119/38
[2018-05-24 01:03] VITALS: BP 118/49
[2018-05-24 04:59] VITALS: BP 106/42
[2018-05-24 05:52] LABS: BASOPHILS 0.5 % (0-2); HEMATOCRIT 38.2 % (36.0-48.0); HEMOGLOBIN 12.6 g/dL (12-16); IMMATURE GRANULOCYTES 0.3 % (0-5); LYMPHOCYTES 19.3 % (15-50); MCH 30.4 pg (26.0-34.0); MEAN PLATELET VOLUME 10.2 fL (7.4-10.4); MONOCYTES 10.8 % (2-11); NEUTROPHILS 66.1 % (40-80); PLATELET COUNT 107 10x3/uL (130-400); RBC 4.15 10x6/uL (4.00-5.40); RDW 15.4 % (11.5-14.5); WBC 6.6 10x3/uL (4.8-10.8)
[2018-05-24 06:28] LABS: ANION GAP 15.7 mmol/L (8-16); BILIRUBIN - TOTAL 2.19 mg/dL (0.2-1.3); CALCIUM 8.5 mg/dL (8.5-10.1); CARBON DIOXIDE 29.9 mmol/L (21.0-32.0); CREATININE - SERUM 1.1 mg/dL (0.6-1.3); POTASSIUM - SERUM 3.6 mmol/L (3.5-5.1); PROTEIN - SERUM 6.3 g/dL (6.4-8.2)
[2018-05-24 09:41] VITALS: BP 107/48
[2018-05-24 15:53] VITALS: BP 127/53
[2018-05-24 20:05] VITALS: BP 123/35
[2018-05-25 03:43] VITALS: BP 130/55
[2018-05-25 05:29] LABS: BASOPHILS 0.3 % (0-2); EOSINOPHILS 3.9 % (0-7); HEMOGLOBIN 12.9 g/dL (12-16); IMMATURE GRANULOCYTES 0.6 % (0-5); LYMPHOCYTES 17.4 % (15-50); MCH 30.6 pg (26.0-34.0); MCHC 33.1 g/dL (31.0-37.0); MCV 92.4 fL (80.0-100.0); MEAN PLATELET VOLUME 9.7 fL (7.4-10.4); MONOCYTES 8.9 % (2-11); NEUTROPHILS 68.9 % (40-80); RBC 4.22 10x6/uL (4.00-5.40); RDW 15.7 % (11.5-14.5)
[2018-05-25 05:33] LABS: PLATELET COUNT 140 10x3/uL (130-400); WBC 8.7 10x3/uL (4.8-10.8)
[2018-05-25 05:54] LABS: ALBUMIN 2.9 g/dL (3.4-5.0); ANION GAP 16.2 mmol/L (8-16); BILIRUBIN - TOTAL 2.71 mg/dL (0.2-1.3); CALCIUM 8.9 mg/dL (8.5-10.1); CARBON DIOXIDE 28.3 mmol/L (21.0-32.0); CREATININE - SERUM 1.2 mg/dL (0.6-1.3); POTASSIUM - SERUM 3.5 mmol/L (3.5-5.1); PROTEIN - SERUM 6.2 g/dL (6.4-8.2)
[2018-05-25 08:02] VITALS: BP 126/79
[2018-05-25] MEDS ORDERED: NORCO 10-325 TA1 TAB PO (08:40)
[2018-05-25 12:43] VITALS: BP 150/48
[2018-05-26 11:18] LABS: HEPATITIS C ANTIBODY >11.0 (0.0-0.9)
== END 2018-05-25 12:30 | DRG 515 ==
LOC: D.ER 19:11 → D.M2 20:20 → D.MS 20:20
PROVIDERS: Family Medicine; Neurological Surgery
PROC: 0QU03JZ Supplement Lumbar Vertebra with Synthetic Substitute, Percutaneous Approach (ICD-10-PCS; 2018-05-21)
PROC: 0QS03ZZ Reposition Lumbar Vertebra, Percutaneous Approach (ICD-10-PCS; principal; 2018-05-21 13:30)
DX: S32.059A Unspecified fracture of fifth lumbar vertebra, initial encounter for closed fracture (principal); G93.41 Metabolic encephalopathy; I10 Essential (primary) hypertension; I25.10 Atherosclerotic heart disease of native coronary artery without angina pectoris; K75.9 Inflammatory liver disease, unspecified; F17.200 Nicotine dependence, unspecified, uncomplicated; W01.0XXA Fall on same level from slipping, tripping and stumbling without subsequent striking against object, initial encounter; F41.8 Other specified anxiety disorders; M19.90 Unspecified osteoarthritis, unspecified site; Z95.0 Presence of cardiac pacemaker

== ENCOUNTER → 2018-06-10 18:06 | Outpatient (CLI) | payer MEDICARE, OTHER ==
[2018-05-20 12:13] VITALS: BMI 34.7
[~2018-06-10 18:06] MED LIST changes: +NORCO 10-325 TA1 TAB PO
[2018-06-10 18:40] LABS: INR 3.5 (0.85-1.17); PROTIME 34.4 SECONDS (11.6-15.0)
== END | disposition home or self-care (01) ==
LOC: D.LABREF 18:06
PROVIDERS: Family Medicine
DX: I50.9 Heart failure, unspecified (principal); Z51.81 Encounter for therapeutic drug level monitoring; Z79.01 Long term (current) use of anticoagulants

== ENCOUNTER → 2018-06-23 12:31 | Outpatient (CLI) | payer MEDICARE, OTHER ==
[2018-05-20 12:13] VITALS: BMI 34.7
== END | disposition home or self-care (01) ==
LOC: D.RAD 12:31
DX: M25.552 Pain in left hip (principal)

== ENCOUNTER 2019-02-25 17:10 | Inpatient (IN) | payer MEDICARE, OTHER ==
[2019-02-25] VITALS (15 sets, daily range): BP systolic 82–163; BP diastolic 47–100; BMI 25.4
[~2019-02-25] VITALS: Ht 162.6 cm; Wt 88.2 kg
--- NOTE | 2019-02-25 17:30 | NUR ---
WHILE ATTEMPTING TO REPOSITION ET TUBE ACCIDENTALLY DISLODGED. REINTUBATED BY DR MACDONALD WITHOUT DIFFICULTY
[2019-02-25 17:48] LABS: BASOPHILS 0.4 % (0-2); EOSINOPHILS 1.5 % (0-7); HEMATOCRIT 36.7 % (36.0-48.0); HEMOGLOBIN 11.9 g/dL (12-16); LYMPHOCYTES 19.5 % (15-50); MCH 30.5 pg (26.0-34.0); MCHC 32.4 g/dL (31.0-37.0); MCV 94.1 fL (80.0-100.0); MEAN PLATELET VOLUME 10.4 fL (7.4-10.4); MONOCYTES 7.5 % (2-11); NEUTROPHILS 68.1 % (40-80); PLATELET COUNT 141 10x3/uL (130-400); RDW 16.3 % (11.5-14.5); WBC 10.6 10x3/uL (4.8-10.8)
[2019-02-25 17:51] LABS: APPEARANCE TURBID (CLEAR); BILIRUBIN NEGATIVE (NEGATIVE); COLOR YELLOW (YELLOW); GLUCOSE NEGATIVE (NEGATIVE); KETONE NEGATIVE (NEGATIVE); NITRITE POSITIVE (NEGATIVE); PROTEIN 2+ mg/dL (NEGATIVE); UROBILINOGEN NORMAL (NORMAL)
[2019-02-25 17:52] LABS: EPITHELIAL CELLS NSEEN /hpf (0-5); WHITE CELLS - URINE >50 /hpf (0-5)
[2019-02-25 17:53] LABS: BACTERIA MANY /hpf (NONE SEEN)
[2019-02-25 18:05] LABS: PROTIME 65.5 SECONDS (11.6-15.0)
[2019-02-25 18:06] LABS: INR 7.9 (0.85-1.17)
--- NOTE | 2019-02-25 18:12 | NUR ---
TO CT VIA STRETCHER WITH RN, RT, CENTRAL OFFICE SUPERVISOR, AND CM.
--- NOTE | 2019-02-25 18:27 | NUR ---
FSBS= 129 MG/DL
--- NOTE | 2019-02-25 18:41 | NUR ---
SZ ACTIVITY AND POSTURING NOTED. MD NOTIFIED AND NEW ORDERS RCVD
[2019-02-25 18:53] LABS: ALBUMIN 2.4 g/dL (3.4-5.0); ALKALINE PHOSPHATASE 64 U/L (46-116); ALT (SGPT) 37 U/L (10-68); BILIRUBIN - TOTAL 1.09 mg/dL (0.2-1.3); CALC OSMOLALITY 291 mosm/kg (275-300); CALCIUM 7.8 mg/dL (8.5-10.1); CARBON DIOXIDE 31.1 mmol/L (21.0-32.0); CHLORIDE - SERUM 102 mmol/L (98-107); CREATINE KINASE 256 UL (21-215); CREATININE - SERUM 1.7 mg/dL (0.6-1.3); GLUCOSE 135 mg/dL (74-106); MAGNESIUM - SERUM 1.4 mg/dL (1.8-2.4); PROTEIN - SERUM 5.6 g/dL (6.4-8.2); SODIUM 144 mmol/L (136-145); THYROID STIMULATING HORMONE 5.27 uIU/mL (0.36-3.74); UREA NITROGEN 21 mg/dL (7-18); eGFR NON AFRICAN AMERICAN 31 mL/min (90-120)
[2019-02-25 19:03] LABS: POTASSIUM - SERUM 2.8 mmol/L (3.5-5.1); TROPONIN-I 0.584 ng/mL (0.000-0.060)
--- NOTE | 2019-02-25 19:10 | NUR ---
REPORT CALLED TO HEVER PENA BY SBAR FORMAT
--- NOTE | 2019-02-25 19:13 | NUR ---
TRANSPOERTED TO ICU VIA STRETCHER WITH RN, RT AND CM
[2019-02-25 19:18] LABS: CKMB 1.6 U/L (0.0-3.6)
--- NOTE | 2019-02-25 19:45 | NUR ---
RECEIVED PT FROM THE ER VIA STRECHTER TO ROOM 2302. PT WAS TRANSFERRED TO ICU AND ATTACHED TO ICU MONITORS. ADMISSION ASSESSMENT COMPLETED, SEE FLOWSHEET FOR DETAILS. PT'S FRIENDS PRESENT, UNABLE TO PROVIDE ANY MEDICAL HX BUT DOES HAVE PT'S PRESCRIPTIONS PRESENT WELL POA PAPERS. SPOKE WITH LANCE CRAWFORD REGARDING PT'S CRITICAL LAB RESULTS AND PT'S ELEVATED HR, ORDERS RECEIVED. NO FURTHER NEEDS NOTED AT THIS TIME. WILL CONTINUE TO MONITOR.
--- NOTE | 2019-02-25 21:00 | NUR ---
PT IS IN BED INTUBATED ON THE VENT. CARIDOLOGY WAS CONSULTED REGARDING PT'S HR AND PULMONOLOGY WAS CONSULTED REGARDING PT BEING ON VENT. BOTH CONSULTS CALLED IN AND ORDERS RECEIVED. PT'S GRANDSON CALLED REQUESTING TO SPEAK WITH HIS GRANDMOTHER, UPDATE GIVEN. NO ACUTE CHANGES NOTED AT THIS TIME. WILL CONTINUE TO MONITOR.
[2019-02-25 21:21] LABS: CKMB 5.5 U/L (0.0-3.6)
[2019-02-25 21:22] LABS: CREATINE KINASE 333 UL (21-215)
[2019-02-25 21:23] LABS: TROPONIN-I 4.037 ng/mL (0.000-0.060)
--- NOTE | 2019-02-25 23:00 | NUR ---
REASSESSMENT COMPLETED, SEE FLOWSHEET FOR DETAILS. PT IS LAYING IN BED INTUBATED AND ON THE VENT. NO ACUTE CHANGES NOTED. HR IS CONTROLLED AT THIS TIME. NO SIGNS OF ACUTE DISTRESS. WILL CONTINUE TO MONITOR.
[2019-02-26] VITALS (54 sets, daily range): BP systolic 87–134; BP diastolic 45–76; Ht 162.6 cm; Wt 88.2 kg
--- NOTE | 2019-02-26 01:00 | NUR ---
PT IS IN BED INTUBATED. PT REPOSITIONED FOR COMFORT. ORAL CARE PERFORMED. NO SIGNS OF ACUTE DISTRESS NOTED. WILL CONTINUE TO MONITOR.
[2019-02-26 01:50] LABS: UDS - AMPHET NEGATIVE QUAL (NEGATIVE); UDS - BARB NEGATIVE QUAL (NEGATIVE); UDS - BENZO POSITIVE QUAL (NEGATIVE); UDS - COCAINE NEGATIVE QUAL (NEGATIVE); UDS - OPIATE NEGATIVE QUAL (NEGATIVE); UDS - PCP NEGATIVE QUAL (NEGATIVE); UDS - THC NEGATIVE QUAL (NEGATIVE)
[2019-02-26 02:59] LABS: APTT 77.7 SECONDS (22.8-39.4)
--- NOTE | 2019-02-26 03:00 | NUR ---
REASSESSMENT COMPLETED, SEE FLOWSHEET FOR DETAILS. PT IS IN BED INTUBATED AND ON THE VENT. NO SEDATION IS ON AND PT IS NOT RESPONSIVE/WILL NOT FOLLOW COMMANDS. THERE IS SOME MOVEMENT OF THE HEAD AND EXTREMITIES. NO SIGNS OF ACUTE DISTRESS. WILL CONTINUE TO MONITOR.
[2019-02-26 03:02] LABS: INR 6.57 (0.85-1.17); PROTIME 56.6 SECONDS (11.6-15.0)
[2019-02-26 03:20] LABS: CKMB 3.2 U/L (0.0-3.6); CREATINE KINASE 282 UL (21-215)
[2019-02-26 03:24] LABS: TROPONIN-I 3.852 ng/mL (0.000-0.060)
--- NOTE | 2019-02-26 04:38 | NUR ---
CHANGED FIO2 TO 50% PER MORNING ABG
--- NOTE | 2019-02-26 05:00 | NUR ---
IO COLLECTED DAILY WEIGHT COLLECTED VSS WILL CONTINUE TO MONITOR.
[2019-02-26 05:41] LABS: BASOPHILS 0.1 % (0-2); EOSINOPHILS 0 % (0-7); HEMATOCRIT 33.1 % (36.0-48.0); IMMATURE GRANULOCYTES 0.4 % (0-5); LYMPHOCYTES 7.9 % (15-50); MCH 30.2 pg (26.0-34.0); MCHC 33.2 g/dL (31.0-37.0); MEAN PLATELET VOLUME 10.6 fL (7.4-10.4); NEUTROPHILS 83.6 % (40-80); RBC 3.64 10x6/uL (4.00-5.40); RDW 16.2 % (11.5-14.5)
[2019-02-26 05:44] LABS: MCV 90.9 fL (80.0-100.0); PLATELET COUNT 181 10x3/uL (130-400); WBC 14.2 10x3/uL (4.8-10.8)
[2019-02-26 05:58] LABS: ALBUMIN 2.2 g/dL (3.4-5.0); ANION GAP 11.8 mmol/L (8-16); BILIRUBIN - TOTAL 1.01 mg/dL (0.2-1.3); CALCIUM 7.3 mg/dL (8.5-10.1); CARBON DIOXIDE 29.9 mmol/L (21.0-32.0); CREATININE - SERUM 1.5 mg/dL (0.6-1.3); PROTEIN - SERUM 5.4 g/dL (6.4-8.2)
[2019-02-26 05:59] LABS: POTASSIUM - SERUM 2.7 mmol/L (3.5-5.1)
--- NOTE | 2019-02-26 06:30 | NUR ---
PT HAD LARGE LIQUID BROWN STOOL. BATH AND LINEN CHANGED. SKIN INTACT PLACED MEPILEX TO BUTTOCK FOR PROTECTION.
--- NOTE | 2019-02-26 07:22 | NUR ---
REPORT RECEIVED. PT ON VENT A/C. SETTINGS PER RT. PT HAS NGT TO LIS. PT HAS BEAR AND PIV IN RIGHT FOREARM AND IN RIGHT BREAST. CARDIZEM AND D5LR HANGING. PT HAS BRUISES SCATTERED OVER BODY. ASSESSMENT DONE. PT REPOSITIONED TO HER LEFT SIDE. VSS. WILL CONTINUE TO MONITOR.
--- NOTE | 2019-02-26 09:17 | NUR ---
SPOKE WITH PT'S FAMILY. UPDATED. VENT SETTINGS CHANGED PER RT. SUPERVISOR RECEIVING AND PROCESSING JUST FINISHED WITH PT. REPOSITIONED AND SUCTIONED. VSS. 3RD POTASSIUM RIDER INFUSING.
--- NOTE | 2019-02-26 09:44 | NUR ---
DR ESCOBAR WANTS PT TO GET CVL. WANTS TO STABILIZE PT THEN SEND PT TO ANOTHER FACILITY THAT HAS A NEUROLOGIST ON STAFF.
--- NOTE | 2019-02-26 11:30 | NUR ---
DR SOUSA IN WITH PT. ADJUSTED VENT SETTINGS. RESP SET AT 15; O2 45%; TIDAL VOLUME 500; PEEP 5. WILL CONTINUE TO MONITOR.
--- NOTE | 2019-02-26 13:09 | NUR ---
PROPOFOL INITIATED. RIGHT SUBCLAVIAN CVL PLACED. CHG BATH GIVEN. PT REPOSITIONED.
[2019-02-26 13:36] LABS: CKMB 3.2 U/L (0.0-3.6)
[2019-02-26 13:37] LABS: CREATINE KINASE 397 UL (21-215); TROPONIN-I 1.731 ng/mL (0.000-0.060)
--- NOTE | 2019-02-26 15:49 | NUR ---
EMERGENCY CONTACT, NUSRAT, BROUGHT POA PAPERWORK TO ICU. MADE COPIES TO PUT ON CHART. AWARE OF PT BEING IN IR TO FIX CVL PLACEMENT.
--- NOTE | 2019-02-26 16:15 | MORECARE ---
CASE MANAGEMENT DISCHARGE SUMMARY PATIENT: ARTURO HERNANDEZ UNIT: [id number] ADM DATE: 02/25/19 AGE: 73 : 43 SEX: F ROOM/BED: D.2302 AUTHOR: CIPRIANO TOMLINSON PHYSICIAN: REFERRING PHYSICIAN: STEVIE ALMANZAR MD DATE OF SERVICE: 02/26/19 Discharge Plan Patient Name: ARTURO HERNANDEZ Facility: [facility]:[place] : 1945 Planned Disposition: Anticipated Discharge Date: Discharge Date: Expected LOS: Initial Reviewer: [email or web address] Initial Review Date: 02/25/2019 Generated: 02/26/19 5:15 pm Comments DCP- Discharge Planning Updated by [email or web address]: Yanique Garsia on 02/26/19 3:[address] CM attempted to visit with patient regarding discharge planning / needs. Patient is currently on vent / sedated and no family available. CM attempted to get in touch with POA listed but no answer. CM will continue to follow and assist as needed with discharge planning / needs. Patient Name: ARTURO HERNANDEZ Page [phone] at 1615 All edits/amendments must be made on the electronic document DICTATION DATE: 02/26/191613 COMPRESSOR REPAIRER: ANAYELI 02/26/191613 RPT#: [id number] DC DATE: STATUS: ADM IN [facility] [address] [place] [address] END OF REPORT
--- NOTE | 2019-02-26 17:17 | NUR ---
BS 139. NO INSULIN COVERAGE NEEDED. BLOOD DRAWN FROM CVL FOR POTASSIUM AND SENT TO LAB. PT SUCTIONED AND REPOSITIONED. VSS. BEAR IN PLACE. RIGHT SUBCLAVIAN WITH PROPOFOL, CARDIZEM, AND D5LR INFUSING. WILL CONTINUE TO MONITOR.
--- NOTE | 2019-02-26 19:00 | NUR ---
REPORT RECEIVED INITIAL ASSESSMENT COMPLETE. SEDATED WITH DIPRIVAN DOES OPEN EYES TO VERBAL STIMULI. RIGHT SUBCLAVIAN PATENT SEE IV FLOWSHEET. BRUISING NOTED ALL OVER BODY FROM PREVIOUS FALLS AT HOME PER REPORT. PT HAS PACER BUT PER REPORT WHEN INTEROGATED REP STATED PACER NEEDED BATTERIES. CM READING SR WITH ALARMS ON AND AUDIBLE. WILL CONT TO MONITOR
--- NOTE | 2019-02-26 21:00 | NUR ---
REPOSITIONED FOR COMFORT. SUCTIONED LARGE AMOUNT CLEAR SECRETIONS ORALLY AND VIA ORAL ETT. CARDIZEM GTT DECREASED DOWN TO 10 MG
--- NOTE | 2019-02-26 23:00 | NUR ---
REASSESSMENT MADE NO CHANGES. REPOSITIONED FOR COMFORT VSS DECREASED CARDIZEM DOWN TO 8
[2019-02-27] VITALS (44 sets, daily range): BP systolic 77–139; BP diastolic 36–87
--- NOTE | 2019-02-27 03:00 | NUR ---
REASSESSMENT SEE FLOWSHEET. ORAL CARE DONE AND SUCTIONED VIA ORAL ETT AND ORALLY. CARDIZEM AT 5MG
[2019-02-27 05:08] LABS: BASOPHILS 0.1 % (0-2); EOSINOPHILS 0.7 % (0-7); HEMATOCRIT 27.9 % (36.0-48.0); HEMOGLOBIN 9.2 g/dL (12-16); IMMATURE GRANULOCYTES 0.5 % (0-5); LYMPHOCYTES 15.9 % (15-50); MCH 30.1 pg (26.0-34.0); MCV 91.2 fL (80.0-100.0); MEAN PLATELET VOLUME 9.3 fL (7.4-10.4); MONOCYTES 9.7 % (2-11); NEUTROPHILS 73.1 % (40-80); PLATELET COUNT 178 10x3/uL (130-400); RBC 3.06 10x6/uL (4.00-5.40); RDW 16.7 % (11.5-14.5); WBC 17.4 10x3/uL (4.8-10.8)
[2019-02-27 05:23] LABS: INR 1.91 (0.85-1.17); PROTIME 21.2 SECONDS (11.6-15.0)
[2019-02-27 05:42] LABS: BILIRUBIN - TOTAL 0.92 mg/dL (0.2-1.3); CREATININE - SERUM 1.2 mg/dL (0.6-1.3); PHOSPHOROUS 2.2 mg/dL (2.5-4.9); PROTEIN - SERUM 4.9 g/dL (6.4-8.2)
[2019-02-27 05:46] LABS: ANION GAP 8.4 mmol/L (8-16); POTASSIUM - SERUM 3.4 mmol/L (3.5-5.1); TROPONIN-I 1.038 ng/mL (0.000-0.060)
--- NOTE | 2019-02-27 06:13 | NUR ---
LAB REPORTING LOW POTASSIUM/MAG LEVELS TREATING PER ELECTROLYTE PROTOCOL. PT STILL SEDATED WITH DIPRIVAN LIGHTLY DOES OPEN EYES AND SQUEEZES HANDS TO COMMAND
--- NOTE | 2019-02-27 06:45 | NUR ---
CM ALARMING PVC NOTED ON CM PTS MAG AND POTASSIUM BOTH LOW AND BEING TREATED PER ELECTROLYTE PROTOCOL.
--- NOTE | 2019-02-27 07:30 | NUR ---
LIFTS EYE BROWS TO STIMULATION. TRIES TO OPEN EYES. ETT SECURE TO VENT. BILATERAL LUNG SOUNDS EQUAL. RIGHT SUBCLAVIAN TRIPLE LUMEN CENTRAL LINE INFUSING WITH CARDIZEM AT 5 MG HOUR, KCL RIDER, MAG RIDER. D5LR INFUSING AT 80 ML HOUR. BEAR CATH DRAINING CLOUDY YELLOW URINE.SCD ON LOWER LEGS. MONITOR SR. HEAD OF BED ELEVATED AT 30
--- NOTE | 2019-02-27 08:14 | NUR ---
ANTONY WALSH HERE STATES THE DAUGHTER AND GRANDAUGHTERS ARE COMING THIS AFTERNOON, THEY ARE PLANNING ON TERMINAL EXTUBATION AFTER THE FAMILY HAVE SPENT TIME WITH HER. DISCUSS TERMINAL EXTUBATION, AND MORE OPEN VISITATION FOR FAMILY. QUESTIONS ANSWERED UP DATE GIVEN
--- NOTE | 2019-02-27 09:00 | NUR ---
GRANDCHILDREN HERE UPDATE GIVEN. DISCUSS TERMINAL EXTUBATION. ALLOWING FAMILY TO STAY WITH PATIENT.
--- NOTE | 2019-02-27 10:48 | NUR ---
REPOSITIONED. OPENING EYES WHEN DID NOT OBEY COMMANDS, TOLERATED WELL NO DISTRESS. RESP THERAPY NOTIFIED NEW ORDER TO CHANGE AC TO 12. GRANDCHILDREN HERE. EMOTIONAL SUPPORT GIVEN
--- NOTE | 2019-02-27 11:30 | NUR ---
DR. SOUSA HERE. INFORMED OF POA PLANS. INSTRUCTED TO TURN OFF DIPRIVAN TO SEE WHAT HAPPENS. DIPIRVAN TURNED OFF.PATIENT WAKING UP. MAKES EYE CONTACT. NODING HEAD TO YES AND NO QUESTIONS. HANDS SQUEEZED LIGHTLY. PATIENT STARTED GAGGING AND RESP IN 30'S DIPRIVAN TURNED ON AT 10 MCG/KG/MIN. PATIENT STILL WAKES UP EASILY RESP. RATE NORMAL. PATIENT COMFORTABLE
--- NOTE | 2019-02-27 12:00 | NUR ---
GRANDCHILDREN HERE EMOTIONAL SUPPORT GIVEN. PATIENT AWAKES EASILY TO VERBAL STIMULI MAKES EYE CONTACT. DOES NODE HEAD TO YES AND NO QUESTIONS. NO DISTRESS. WILL GRAP ETT AND NG TUBE WHEN RESTRAINTS OFF. PATIENT TRYING TO GET UP OUT OF BED. DIPRIVAN AT 20 MCG/KG/MIN TO KEEP CALM IN BED.
--- NOTE | 2019-02-27 14:00 | NUR ---
NO CHANGES. GRANDCHILDREN AT BEDSIDE. KICKING LEGS OFF BED. AWAKES MAKES EYE CONTACT. NODES HEAD TO YES AND NO QUESTIONS. NO DISTRESS
--- NOTE | 2019-02-27 16:00 | NUR ---
NO CHANGES NO RESP DISTRESS. AWAKES EASILY AT 20 MCG/KG/MIN OF DIPIRVAN. DOES NOT ASSIST WITH TURNING SELF. WILL WEAKLY OIL AND GAS WELL TREATMENT OPERATOR HANDS ON REQUEST. MOVING LEGS OFF BED. WILL REACH FOR ETT AND NG WHEN NOT RESTRAINTED. HEAD OF BED ELEVATED 30 DEGREES. HIBCLENS BATH GIVEN. COMPLETE LINEN CHANGE SMALL LIQUID BROWN STOOL. NO SKIN BREAKDOWN NOTED. BRUISING ALL OVER BODY. SCD REPLACED ON LOWER LEGS. PATIENT TOLERATED WELL. MONITOR SR . NG TO LOW INTERMITTENT SUCTION LIGHT BROWN DRAINAGE. BEAR CATH PATENT CONCENTRATED URINE.
--- NOTE | 2019-02-27 18:00 | NUR ---
FAMILY AT BEDSIDE. NO CHANGES IN PATIENT. DIPRIVAN TUBING CHANGED. AWAKES EASILY.
--- NOTE | 2019-02-27 19:00 | NUR ---
REPORT RECEIVED. INITIAL ASSESSMENT COMPLETED. PTS GRANDSON AT BEDSIDE PER REPORT HE HAS BEEN AT BEDSIDE MOST OF DAY. HE TELLS ME HIS MOTHER WHICH IS PT'S DAUGHTER IS FLYING IN FROM OUT OF STATE. PT TRACKS NURSE WITH EYES AND NODS HEAD TO QUESTIONS ASKED IF SHE WAS IN PAIN SHE NODDED YES THEN ASKED IF SHE WANTED ME TO WAIT UNTIL SHE COULD SEE DAUGHTER BEFORE GIVING MEDICATION FOR PAIN SHE WILL PROBABLY NOT STAY AWAKE. SHE NODS HEAD YES TO WAIT FOR HER TO SEE HER DAUGHTER, THIS WAS WITNESSED BY GRANDSON. PT FOLLOWS COMMANDS BY SQUEEZING HANDS AND LIFTS LEGS. PTS GRANDSON STATED HE WOULD LET NURSE KNOW WHEN PTS DAUGHTER ARRIVES. CM ON READING SR WITHOUT ECTOPY AT THIS TIME. ALARMS ON AND AUDIBLE. RTLSC WITH CVP ZEROED AND CALIBRATED WITH READING OF 9. IV PATENT SEE IV FLOWSHEET. PT HAS BRUISING ALL OVER BODY,CHEST,TRUNK ARMS LEGS SHOULDERS ALL OVER PER REPORT FREQUENT FALLS AND THEN WHEN FOUND ARRESTED AT HOME WITH CPR WELL DEFIB SEE ASSESSMENT FLOWSHEET
--- NOTE | 2019-02-27 21:00 | NUR ---
PTS DAUGHTER AND TWO GRANDSONS HERE SPEAKING WITH CHARGE NURSE CAMERON CRUZ RN PTS DAUGHTER DISTRAUGHT THE PATIENTS POA (FRIEND) HAS INFORMED DAUGHTER THEY ARE EXTUBATING PT FIRST THING IN AM. THE POA AND HER HAVE BEEN UP TO UNIT BUT SHE HAS NOT BEEN IN PATIENTS ROOM OR ATTEMPTED TO INTERACT WITH PATIENT. PTS DAUGHTER IS ASKING IF THE POA CAN REALLY JUST HAVE HER MOTHER EXTUBATED IF SHE IS MAKING PURPOSEFUL MOVEMENTS FOLLOWING COMMANDS AND NODS HEAD APPROPRIATELY TO QUESTIONS ASKED. PTS DAUGHTER AND GRANDSONS DO NOT WANT TO TERMINALLY EXTUBATE PT HAS SHOWN MARKED CHANGE FROM UNRESPONSIVE WHEN SHE WAS ADMITTED, TO PURPOSEFUL ACTIONS. CAMERON CRUZ CHARGE NURSE AWARE OF SITUATION AND SPEAKING WITH PTS FAMILY AND THE POA NUSRAT MANZO AND POA'S HELGA.
--- NOTE | 2019-02-27 21:25 | NUR ---
PTS DAUGHTER HAS SEEN MOTHER AND WAS INFORMED BY GRANDSON THAT PT HAD WANTED TO WAIT ON PAIN MED UNTTL SHE WAS ABLE TO SEE HER DAUGHTER. DAUGHTER AND GRANDSONS HAVE BEEN AT BEDSIDE NOW JUST WANT TO MAKE SURE PT PAIN IS ADDRESSED. PT NODS HEAD YES TO PAIN AND YES NOD FOR ASKING IF SHE WANTED PAIN MEDICATION. NOTHING ON PRN MAR PAGED DR PICKARD AND INFORMED OF PTS EXTENSIVE ALLERGY LIST. DR PICKARD DUE TO ALLERGY LIST ASKLED IF THE FAMILY KNEW IF PATIENT HAD HAD MORPHINE IN PAST THEY WERE NOT AWARE. SO DR PICKARD ORDERED MINIMAL MORPHINE ONE TIME DOSE. PT RESTLESS CONSTANTLY PUTTING LEGS OVER SIDE OF BED AND GRIMACING. WITH BRUISING ALL OVER BODY AND THE CHEST COMPRESSIONS PT MEDICATED WITH MORPHINE SIVP ONE MG PER ORDER WILL CLOSELY MONITOR
--- NOTE | 2019-02-27 22:00 | NUR ---
DIPRIVAN WAS INCREASED WITH MORPHINE NO ADVERSE REACTION NOTED AT THIS TIME WILL CONTINUE TO MONITOR. PTS FAMILY LEAVING AND WILL RETURN IN AM SO PT CAN REST CPOC
--- NOTE | 2019-02-27 23:00 | NUR ---
REASSESSMENT MADE NO CHANGES MORPHINE EFFECTIVE
[2019-02-28] VITALS (24 sets, daily range): BP systolic 91–139; BP diastolic 42–84
--- NOTE | 2019-02-28 01:00 | NUR ---
PT NO LONGER RESTLESS SEDATED STILL OPENS EYES SEE IV FLOWSHEET FOR DRIP CHANGES,
--- NOTE | 2019-02-28 03:28 | NUR ---
RADIOLOGY HERE FOR CHEST XRAY
--- NOTE | 2019-02-28 04:00 | NUR ---
DECREASING SEDATION FOR PULMONOLOGY TO ASSESS RESP STATUS
--- NOTE | 2019-02-28 06:30 | NUR ---
PT STILL RECEIVING POTASSIUM RIDERS AM LABS WILL BE DRAWN ONCE COMPLETE WILL PASS ON IN REPORT. PT CALM AND NOT RESTLESS NOW AT 10 MCG OF DIPRIVAN SEE IV FLOWSHEET FOR RATE CHANGES
--- NOTE | 2019-02-28 07:15 | NUR ---
AWAKES EASILY TO VERBAL SITMULI NODES HEAD APPRIOPIATELY TO YES AND NO QUESTIONS. MOVES RIGHT AND LEFT LEG ON REQUEST. SQUEEZES HANDS ON REQUEST. LIFTS EYE BROWS ON REQUEST. MAKES EYE CONTACT. NO DISTRESS. BILATERAL LUNG SOUNDS EQUAL. NG TO LOW INTERMITTENT SUCTION DARK JARRETT YELLOW DRAINAGE. BEAR CATH PATIENT DARK ROSAS URINE. RIGHT SUBCLAVIAN TRIPLE LUMEN INFUSING WITH DIPRIVAN AT 10 MCG/KG/MIN. CARDIZEM 5 MG HOUR. D5LR AT 80 ML HOUR. HEAD OF BED ELEVATED [address]. MONITOR SR. BRUSIING NOTED ALL OVER BODY.
--- NOTE | 2019-02-28 07:30 | NUR ---
PATIENT OPENS EYES MAKES EYE CONTACT ON VERBAL REQUEST, MOVES RIGHT FOOT ON REQUEST SQUEEZES HANDS ON REQUEST. MOVES LEFT FOOT ON REQUEST. LIFTS EYE BROWS ON REQUEST. NODES APPROPIATELY TO YES AND NO QUESTIONS. DENIES PAIN. BILATERAL LUNG SOUNDS EQUAL. ETT SECURE. NG TO LOW INTERMITTENT SUCTION. BEAR CATH PATENT AND DRAINING ROSAS URINE. MONITOR SR. RIGHT SUBCLAVIAN TRIPLE LUMEN CENTRAL LINE INFUSING WITH DIPRIVAN AT 10 MCG/KG/MIN. CARDIZEM AT 5 MG HOUR. D5LR AT 80 ML HOUR. KCL RIDER COMPLETED. ABD SOFT WITH BOWEL SOUNDS PRESENT. SCD ON LOWER LEGS. HEAD OF BED ELEVATED 30 DEGREES.
--- NOTE | 2019-02-28 08:15 | NUR ---
FAMILY DAUGHTER AND GRANDCHILDREN HERE WITH POA. POA UNDERSTANDS PATIENT IS ANSWERING QUESTIONS APPRIOPIATELY WITH NODING HEAD TO YES AND NO QUESTIONS WILL WAIT ON TERMINAL EXTUBATION AT THIS TIME. PATIENT COUGHING AGAINST ETT AND RESP IN 40'S WITH FAMILY IN ROOM. DIPRIVAN INCREASED BACK TO 20 MCG/KG/MIN. TO PROTECT AIRWAY. PATIENT REACHING FOR ETT AND NG TUBES.
[2019-02-28 08:24] LABS: BASOPHILS 0.2 % (0-2); EOSINOPHILS 3.1 % (0-7); HEMATOCRIT 27.1 % (36.0-48.0); HEMOGLOBIN 8.8 g/dL (12-16); IMMATURE GRANULOCYTES 0.7 % (0-5); LYMPHOCYTES 13.1 % (15-50); MCH 30.2 pg (26.0-34.0); MCHC 32.5 g/dL (31.0-37.0); MCV 93.1 fL (80.0-100.0); MEAN PLATELET VOLUME 9.4 fL (7.4-10.4); MONOCYTES 7.5 % (2-11); NEUTROPHILS 75.4 % (40-80); RBC 2.91 10x6/uL (4.00-5.40); RDW 16.5 % (11.5-14.5)
[2019-02-28 08:35] LABS: PLATELET COUNT 118 10x3/uL (130-400); WBC 10.9 10x3/uL (4.8-10.8)
[2019-02-28 08:47] LABS: ALBUMIN 1.9 g/dL (3.4-5.0); BILIRUBIN - TOTAL 1.04 mg/dL (0.2-1.3); CALCIUM 7.5 mg/dL (8.5-10.1); CREATININE - SERUM 0.9 mg/dL (0.6-1.3); PHOSPHOROUS 2.3 mg/dL (2.5-4.9); PROTEIN - SERUM 4.7 g/dL (6.4-8.2)
[2019-02-28 08:48] LABS: MAGNESIUM - SERUM 2.3 mg/dL (1.8-2.4)
--- NOTE | 2019-02-28 10:00 | NUR ---
DR. BRUNO HERE TALKED WITH FAMILY. PATIENT AWAKENS EASILY RESPONSE APPRIOPIATELY. BEAR PATENT. NO DISTRESS. RESTING COMFORTABLY
--- NOTE | 2019-02-28 12:00 | NUR ---
TALKED WITH DAUGHTER STATES HER MOTHER WANTS TO BE A DNR. CALL ANTONY SILVERIO AND SHE AGREE PATIENT WANTS TO BE AN DNR. MARY POOL TALKED WITH AVA ON PHONE CONFIRMED. DR. SOUSA NOTIFIED ORDERS RECEIVED FOR DNR.
--- NOTE | 2019-02-28 13:00 | NUR ---
FAMILY HERE UPDATE GIVEN. PATIENT AWAKES EASILY NO DISTRESS. RESP RATE BELOW 20 ON SIMV OF 8. TV GREATER THAN 500.
--- NOTE | 2019-02-28 13:54 | NUR ---
PT PLACED IN SPONT MODE CPAP 06/05 @ 1355
--- NOTE | 2019-02-28 14:19 | NUR ---
PATIENT TOLERATING CPAP ON VENT WELL AT THIS TIME.
--- NOTE | 2019-02-28 14:31 | NUR ---
PHARMACY DOES NOT HAVE ANY PO4 FOR REPLACEMENT, WILL BE AVAILABLE TOMORROW.
--- NOTE | 2019-02-28 16:08 | NUR ---
EXTUBATED, TOLERATING WELL AT THIS TIME. ALERT FAMILY AT BEDSIDE. NO DISTRESS.
--- NOTE | 2019-02-28 17:00 | NUR ---
NO RESP DISTRESS. RESP DEEP AND REGULAR GOOD SATS. TAKING ICE CHIPS. NG TUBE PULLED. MONITOR SR.
--- NOTE | 2019-02-28 18:38 | NUR ---
ICE CHIPS TAKEN, CHEWING ON ICE CHIPS NO CHOKING NOTED. SOME CLEARING OF THE THROAT. REPOSTIONED AND PULLED UP IN BED. MOANS WHEN MOVED.
--- NOTE | 2019-02-28 19:00 | NUR ---
REPORT RECEIVED INITIAL ASSESSMENT COMPLETE. PT ALERT TALKING ORIENTED TO PERSON PLACE AND STATES "IN HOSPITAL" WHEN ASKED WHERE SHE WAS. SHE DID NOT REMEMBER WHAT HAPPENED. INFORMED PT OF CIRCUMSTANCES. FOLLOWS COMMANDS EQUAL STRENGTH PT HAS LEGS CROSSED AND HANGING OFF BED A BIT ENCOURAGED PT TO REPOSITION AND TURN MOVE TO HELP PREVENT PNEUMONIA PT STATES "IT HURTS" SHOWED PT HOW TO SPLING CHEST WITH PILLOW TO HELP WITH DISCOMFORT AND PAIN FROM CHEST COMPRESSIONS. PT HAS BRUISES ALL OVER BODY PER REPORT SHE HAD BEEN FALLING AT HOME PRIOR TO THE EVENT. RESP EVEN NONLABORED BUT SHALLOW AND AGAIN EDUCATED ON DEEP BREATHS PT RETURNS DEMONSTRATION WITH TCDB O2 PER NC 4 LPM BREATH SOUNDS REL CLEAR FEW CRACKLES COARSE RHONCHI. O2 SAT 98%. CM READING SR OCC PVC.WITH ALARMS ON AND AUDIBLE. PT HAS PACER IT IS NOT SENSING PER REPORT REP STATED NEEDS BATTERY CHANGE WHEN INTERROGATED FRIDAY. ORAL CARE DONE AND PT REPOSITIONED FOR COMFORT. MEPILEX TO SACRUM FOR ADDED PROTECTION AND PT ON FIRST STEP OVERLAY. VSS AT THIS TIME WILL CONTINUE TO MONITOR. CVP ZEROED AND CALIBRATED WITH READNG OF 9.
--- NOTE | 2019-02-28 22:30 | NUR ---
CHECKING ON PATIENT ASKED IF SHE WAS IN PAIN SHE STATES "YES". ASKED WHAT WAS CAUSING THE MOST PAIN SHE STATES "EVERYTHING" MEDICATED WITH PRN PAIN MED AND TRIED TO GET PT TO CLOSE EYES AND TRY TO GET SLEEP VSS WILL CONTINUE TO MONITOR
--- NOTE | 2019-02-28 23:00 | NUR ---
REASSESSMENT COMPLETE NO CHANGES CPOC. ORAL CARE DONE AND PT REPOSITIONED FOR COMFORT
--- NOTE | 2019-02-28 23:15 | NUR ---
PT STILL AWAKE STATES MEDICINE HELPED A LITTLE REPOSITIONED FOR COMFORT AND PILLOWS PLACED TO ASSIST WITH PAIN RELIEF
[2019-03-01] VITALS (10 sets, daily range): BP systolic 92–142; BP diastolic 45–83
--- NOTE | 2019-03-01 01:00 | NUR ---
ALL OF PTS IV TUBINGS DUE TO BE CHANGED TODAY. ALL TUBINGS CHANGED OUT AND SWAB CAPS IN PLACE.
--- NOTE | 2019-03-01 03:00 | NUR ---
REASSESSMENT COMPLETE NO CHANGES PT HAS NOT RESTED WELL AT ALL HAS HAD PAIN MED PRN WITH RELIEF BUT PT HAS NOT SLEPT WILL PASS ON IN REPORT.
--- NOTE | 2019-03-01 03:20 | NUR ---
PT CALLED NURSE AND STATED HURTING PT STILL HAS NOT RESTED WILL PASS ON IN REPORT. MEDICATED WITH PRN MED SIVP. WILL CONTINUE TO MONITOR
[2019-03-01 04:27] LABS: BASOPHILS 0.2 % (0-2); EOSINOPHILS 3.4 % (0-7); HEMATOCRIT 24.6 % (36.0-48.0); HEMOGLOBIN 7.9 g/dL (12-16); IMMATURE GRANULOCYTES 0.7 % (0-5); MCH 30.5 pg (26.0-34.0); MCHC 32.1 g/dL (31.0-37.0); MEAN PLATELET VOLUME 9.3 fL (7.4-10.4); MONOCYTES 6.7 % (2-11); PLATELET COUNT 101 10x3/uL (130-400); RBC 2.59 10x6/uL (4.00-5.40); RDW 16.5 % (11.5-14.5); WBC 8.2 10x3/uL (4.8-10.8)
[2019-03-01 05:09] LABS: ALBUMIN 1.8 g/dL (3.4-5.0); ANION GAP 7.9 mmol/L (8-16); BILIRUBIN - TOTAL 2.06 mg/dL (0.2-1.3); CALCIUM 7.7 mg/dL (8.5-10.1); CARBON DIOXIDE 29.9 mmol/L (21.0-32.0); CREATININE - SERUM 0.9 mg/dL (0.6-1.3); MAGNESIUM - SERUM 1.7 mg/dL (1.8-2.4); PHOSPHOROUS 3.1 mg/dL (2.5-4.9); POTASSIUM - SERUM 3.8 mmol/L (3.5-5.1); PROTEIN - SERUM 4.5 g/dL (6.4-8.2)
--- NOTE | 2019-03-01 06:45 | NUR ---
MAG LOW TREATED PER ELECTROLYTE PROTOCOL
--- NOTE | 2019-03-01 07:00 | NUR ---
SHIFT ASSESSMENT COMPLETED. PT CARE ASSUMED, MONITORS ON AND WORKING, VITALS STABLE, PT AWAKE AND ALERT, CALLL LIGHT WITHIN REACH, SEE FLOW SHEET FOR FURTHER DETAILS. WILL CONTINUE TO OBSERVE.
--- NOTE | 2019-03-01 07:22 | NUR ---
LATE ENTRY FOR 02/25/19: ROCEPHIN STOP TIME 1909 LEVETIRACETAM STOP TIME 1904
--- NOTE | 2019-03-01 09:00 | NUR ---
FAMILY AT BEDSIDE, UPDATE PROVIDED. MONITORS ON AND WORKING, VITALS STABLE. WILL CONTINUE TO OBSERVE.
--- NOTE | 2019-03-01 09:50 | EC ---
PATIENT:ARTURO HERNANDEZ DATE OF SERVICE: 02/25/19 SEX: F MEDICAL RECORD: [id number] DATE OF : 43 LOCATION:[facility] AGE OF PATIENT: 73 ADMISSION DATE: 02/25/19 REFERRING PHYSICIAN: INTERPRETING PHYSICIAN: GIANA AHMADI MD ECHOCARDIOGRAM REPORT ECHO CHARGES 4 ECHO COMPLETE Date: 02/26/19 CLINICAL DIAGNOSIS: POST CODE ECHOCARDIOGRAPHIC MEASUREMENTS (adult normal given) AC root (d.<3.7cm) 3.0 cm LV Septum d (<1.2 cm> 1.0 cm Valve Excursion 1.1 cm LV Septum (systole) 1.3 cm Left Atria (s.<4.0cm> 3.2 cm LVPW d(<1.2cm) 1.1 cm RV (d.<2.3cm) 3.3 cm LVPW (sytole) 1.5 cm LV diastole(<5.6CM) 6.4 cm MV E-F(>70mm/sec) cm LV systole 4.9 cm LVOT Diameter 1.8 cm MV exc.(>10mm) cm Est.ejection fraction (50-75%) % DOPPLER: LVIT cm/sec A 71 cm/sec E 106 cm/sec LA cm/sec RVSP 25.3 mmHg LVOT 152 cm/sec AOP1/2T m/s Asc. Ao 213 cm/sec RVOT 86 cm/sec RA cm/sec PA 84 cm/sec AV Gradient Peak 18.1 mmHg AV Mean 8.9 mmHg AV Area 2.1 cm MV Gradient Peak 8.8 mmHg MV Mean 3.8 mmHg MV Area cm COMMENTS: Body Artist: Kane CARY Pleater: 1 Dr. Ahmadi TAPE# PACS Pericardial Effusion N DATE OF SERVICE: 02/26/2019 ECHOCARDIOGRAM DATE OF SERVICE: 02/26/2019 FINDINGS: 1. Left ventricular chamber size is mildly dilated. Left ventricular systolic function is moderately reduced, overall ejection fraction is 30% to 35%. 2. Left atrium is within normal limits. Right atrium and right ventricular ECHOCARDIOGRAM REPORT [id number] ARTURO HERNANDEZ chamber sizes are moderately dilated. 3. Valvular structures: Mitral valve is replaced with mechanical prosthesis with normal structure and function in this position. The remaining valvular structures have normal structure and motion. 4. Doppler interrogation reveals trace aortic insufficiency, mild tricuspid regurgitation, no other valvular insufficiency or stenosis. Pulmonary systolic pressure is estimated at 25 mmHg. 5. No evidence of pericardial effusion or left ventricular thrombus. TRANSINT:[id number] Voice Confirmation ID: [id number] DOCUMENT ID: [id number] GIANA AHMADI MD at 0950 CC: [id number] DICTATION DATE: 02/26/19 1423 ADMISSIONS MANAGER: 02/26/19 1525 ADM IN [place] [id number] [place] [address]
--- NOTE | 2019-03-01 09:50 | CN ---
PATIENT NAME:ARTURO HERNANDEZ MEDICAL RECORD: [id number] : 43 LOCATION:SHAQ.2302 ADMIT DATE: 02/25/19 ACCOUNT: [id number] CONSULTING PHYSICIAN: GIANA PETERSON MD REFERRING PHYSICIAN: STEVIE ALMANZAR MD DATE OF CONSULTATION: 02/26/2019 DIAGNOSES: 1. Status post cardiopulmonary arrest. 2. Respiratory failure, on ventilator. 3. Coronary artery disease. 4. Previous percutaneous transluminal coronary angioplasty stent, 08/2017. 5. Sick sinus syndrome. 6. Status post pacemaker. 7. Atrial fibrillation. 8. Hypokalemia. 9. History of hypertension. 10. Chronic obstructive pulmonary disease. 11. Smoking history. 12. Non-Q-wave myocardial infarction. HISTORY OF PRESENT ILLNESS: Mrs. Hernandez was found down at home, brought in from the field, intubated. She is in atrial fibrillation. Heart rate is in the 100 range. She does not have a history of atrial fibrillation as we know. She does have a history of a pacemaker that is a [employer] pacemaker. Her last cardiac intervention was 08/2017. Her troponin is mildly elevated. Her EKG is atrial fibrillation, but no acute ST-T abnormalities. PHYSICAL EXAMINATION: GENERAL APPEARANCE: Well-nourished, well-developed, appears stated age. Level of distress, comfortable. PSYCHIATRIC: The patient is sedated and intubated. EYES: Lids and conjunctiva, noninjected. No discharge, no pallor. ENT: Lips, teeth, gums, normal dentition. Oropharynx, no cyanosis, no pallor. NECK: Carotid arteries, bilateral normal upstroke, no bruits, no thrills. JUGULAR VEINS: No jugular venous pressure or distention. CERVICAL LYMPH NODES: Nontender, nonenlarged. THYROID: Not enlarged. Nontender. No nodules. LUNGS: Respiratory effort, unlabored. CHEST: Normal curvature. No thoracic deformity. No chest wall tenderness. Percussion, resonant. Auscultation, clear. No wheezes, no rales, no rhonchi. CARDIOVASCULAR: Precordial exam, nondisplaced. No heaves or pericardial thrills. Rate and rhythm, regular. Heart sounds, normal S1, normal S2. No S3, no gallop, no rub. Systolic murmur, not heard. Diastolic murmur, not heard. EXTREMITIES: No cyanosis, no edema. Peripheral pulses, full and equal in all extremities, except as noted. No bruits appreciated. ABDOMEN: Soft, nondistended. Normal aorta. No bruit. Nontender. No masses. Liver, nontender, no hepatomegaly. Spleen, nontender, no splenomegaly. MUSCULOSKELETAL: No joint tenderness. No joint swelling. No erythema. NEUROLOGICAL: Normal gait, normal strength, normal tone. SKIN: Warm and dry. OVERALL IMPRESSION: 1. Status post arrest. At this time, we can interrogate the pacemaker to get a better idea of the dysrhythmia associated with the arrest and the possible CONSULT REPORT [id number] ARTURO HERNANDEZ etiology of the arrest. 2. Elevated troponin. This very well may be from hypoperfusion and her being down for some time, but it may be a primary cardiac ischemic event. At this time; however, I would not pursue aggressive or invasive workup with cardiac catheterization due to the patient's overall status, most likely she has significant neurologic defect from the event; however, it she does recover, we would consider repeat coronary angiography. At this time, a pacemaker interrogation and an echocardiogram will be the mainstay of diagnostic therapy. TRANSINT:[id number] Voice Confirmation ID: [id number] DOCUMENT ID: [id number] GIANA PETERSON MD at 0950 CC: [id number] DICTATION DATE: 02/26/19 1209 CERTIFIED PROFESSIONAL CONTROLLER: 02/26/19 1318 ADM IN [place] [address] [place] [address]
--- NOTE | 2019-03-01 10:45 | NUR ---
REC'D ORDERS TO TRANSFER PT TO FLOOR WHEN ROOM BECOMES AVAILABLE. MONITORS ON AND WORKING, VITALS STABLE, WILL CONTINUE TO OBSERVE.
--- NOTE | 2019-03-01 12:33 | NUR ---
Nutrition follow-up: Pt extubated 02/28 P remains NPO except to ice chips at this time Noted transfer orders labs reviewed Wt: 152# Recommend advancing diet to as tolerated past speech eval RDN following.
--- NOTE | 2019-03-01 14:23 | NUR ---
PT ARRIVED A NEW TRANSFER FROM ICU. PT IS AWAKE BUT VERY SLOW TO RESPOND TO ALL QUESTIONS. PT CAN FOLLOW COMMANDS THOUGH. VSS. PLACED ON TELEMETRY AND RUNNING PACED BEATS @60BPM. PT IS ON A CARDIZEM DRIP @5ML/HR TO HER R.CHEST CVL. CVL DRSG HAS BIOPATCH INTACT AND DRSG ADHERED TO SKIN. PT HAS GENERALIZED SWELLING ALL OVER WITHOUT ANY PITTING NOTED. PT HAS EXTENSIVE BRUISING ALL OVER, PURPLE, RED DARK IN COLOR WITH SKIN INTACT. L.FA HAS HEALED LACERATION. RR NONLABORED WITH NC @4L IN PLACE. PT IS DISORIENTED, BUT WAS ABLE TO STATE NAME, , AND PLACE HOWEVER PT DIDNT KNOW WHY SHE IS HERE AND WAS UNABLE TO STATE WHERE SHE LIVES OR WHAT YEAR IT IS OR WEIGHT GUESSER MEMORY AND ANY HEALTH HISTORY. UPON NEURO CHECK NOTED L.PUPIL BIGGER THAN THE RIGHT. LEFT ABOUT A 4MM AND RIGHT IS 2MM. LEFT HAND MODERATE WEAKNESS BALANCE BRIDGE INSPECTOR +2/5, RIGHT ARM SLIGHTLY STRONGER WITH HAND BALANCE BRIDGE INSPECTOR OF 3/5. PT IS ABLE TO LIFT BILAT ARMS AND FOLLOW COMMANDS TO TOUCH MY FINGER. PTS SMILE HAS SLIGHT LEFT SIDE DROOP HOWEVER TONGUE IS MIDLINE. PT IS WANTING SOMETHING TO DRINK HOWEVER WILL FIND OUT ABOUT SWALLOWING STATUS SHE IS POST EXTUBATION. PT HAS BEAR DRAINING TO GRAVITY OFF R.SIDE OF BED DARK ROSAS IN COLOR WITH STAT LOCK SECURED TO R.INNER THIGH. SCDS IN PLACE, ELEVATED BILATE FEET ON PILLOW. PT DENIES ANY CURRENT PAIN OR NEEDS, WILL REVIEW CHART AND ORDERS AND CPOC.
--- NOTE | 2019-03-01 16:40 | NUR ---
D/C PTS CARDIZEM DRIP ORDERED. CARDIOLOGY WILL START ORAL DOSE TOMORROW AM. PTS CURRENTLY RUNNING PACED NORMAL SINUS RHYTHM. DAUGHTER NOW AND BEDSIDE AND PT REC'D HER SPEECH CONSULT SO I HAVE ORDERED HER A TRAY ACCORDINGLY. INITIATED PTS BLOOD TRANSFUSION ORDERED. PRE-VITALS STABLE AND NO ISSUES NTOED. WILL REMAIN AT BEDSIDE FOR FIRST 15MINS TO MONITER FOR ANY REACTION. PT VERBALIZED UNDERSTANDING AND DENIES ANY CURRENT NEEDS. CL IN REACH, BED IN LOWEST. WILL CTM.
--- NOTE | 2019-03-01 17:25 | NUR ---
NO REACTION NOTED AFTER FIRST 15MINS OF TRANSFUSION. INCREASED RATE TO 135ML/HR INFUSING VIA R.CHEST CVL BLUE LUMEN. DECREASED PTS NC TO 3L PULSE OX IS STAYING 98% AND ABOVE. REPOSITIONED UP UP IN BED FOR COMFORT AND ELEVATED L.ARM TO HELP WITH HER GENERALIZED SWELLING. CT DEPARTMENT HERE TO TAKE PT FOR A CT OF THE HEAD. NO CURRENT NEEDS. WILL CTM.
--- NOTE | 2019-03-01 18:50 | NUR ---
BEDSIDE SHIFT REPORT GIVEN. PT DENIES ANY CURRENT NEEDS AT THIS TIME. CL IN REACH.
--- NOTE | 2019-03-01 18:59 | MORECARE ---
CASE MANAGEMENT DISCHARGE SUMMARY PATIENT: ARTURO HERNANDEZ UNIT: [id number] ADM DATE: 02/25/19 AGE: 73 : 43 SEX: F ROOM/BED: D.6605 AUTHOR: CIPRIANO TOMLINSON PHYSICIAN: REFERRING PHYSICIAN: STEVIE ALMANZAR MD DATE OF SERVICE: 03/01/19 Discharge Plan Patient Name: ARTURO HERNANDEZ Facility: [facility] : 1945 Planned Disposition: Anticipated Discharge Date: Discharge Date: Expected LOS: Initial Reviewer: [email or web address] Initial Review Date: 03/01/2019 Generated: 03/01/19 7:59 pm Comments DCP- Discharge Planning Updated by [email or web address]: Yanique Garsia on 02/26/19 3:[address] CM attempted to visit with patient regarding discharge planning / needs. Patient is currently on vent / sedated and no family available. CM attempted to get in touch with POA listed but no answer. CM will continue to follow and assist as needed with discharge planning / needs. DCPIA - Discharge Planning Initial Assessment Updated by [email or web address]: Yanique Garsia on 03/01/19 6:57 pm * Is the patient Alert and Oriented? Yes * How many steps to enter\exit or inside your home? * PCP Dr. Jake Smith * Pharmacy [facility] * Preadmission Environment Home Alone * ADLs Independent * Equipment Rolling Walker * List name and contact numbers for known caregivers / representatives who currently or will assist patient after discharge: JOSE MARIA [facility] - [phone] * Verbal permission to speak to the caregivers and representatives has been obtained from the patient. N/A * Community resources currently utilized None * Additional services required to return to the preadmission environment? No * Can the patient safely return to the preadmission environment? Yes * Has this patient been hospitalized within the prior 30 days at any hospital? No Last DP export: 02/26/19 3:15 p Patient Name: ARTURO HERNANDEZ Page 47943 at 1854 All edits/amendments must be made on the electronic document DICTATION DATE: 03/01/191858 ASSET ANALYST: DM 03/01/191858 RPT#: [id number] DC DATE: STATUS: ADM IN [facility] [address] [place] [address] END OF REPORT
--- NOTE | 2019-03-01 19:04 | NUR ---
PRBCS FINISHED INFUSING, VITALS STABLE. NO S/S ADVERSE REACTION NOTED. IV LINE FLUSHING WITH NS.
--- NOTE | 2019-03-01 19:06 | MORECARE ---
CASE MANAGEMENT DISCHARGE SUMMARY PATIENT: ARTURO HERNANDEZ UNIT: [id number] ADM DATE: 02/25/19 AGE: 73 : 43 SEX: F ROOM/BED: D.5715 AUTHOR: BUSHRA,DOC PHYSICIAN: REFERRING PHYSICIAN: STEVIE ALMANZAR MD DATE OF SERVICE: 03/01/19 Discharge Plan Patient Name: ARTURO HERNANDEZ Facility: [facility]:[place] : 1945 Planned Disposition: Anticipated Discharge Date: Discharge Date: Expected LOS: Initial Reviewer: [email or web address] Initial Review Date: 03/01/2019 Generated: 03/01/19 8:06 pm Comments DCP- Discharge Planning Updated by [email or web address]: Yanique Garsia on 03/01/19 6:[address] Patient Name: ARTURO HERNANDEZ Admission Status: ER Accout number: [id number] Admission Date: 02-25-2019 : 1945 Admission Diagnosis:CARDIAC ARREST, CAUSE UNSPECIFIED Attending: STEVIE ALMANZAR Current LOS: 4 Anticipated DC Date: Planned Disposition: Primary Insurance: MEDICARE A & B Discharge Planning Comments: CM met called and spoke with Jose Maria HARDY to complete initial dc planning assessment. Patient is alert but confused. CM educated Jose Maria on the CM role and verbal consent given by patient to complete assessment. Patient lives at home alone where she is independent with her care. Jose Maria stated the patient has a rolling walker with seat but no other medical equipment at home. Jose Maria stated that she hasn't had any home health care recently. Jose Maria asked if patient was going into Rehab. CM explained that CM was uncertain of what patient's needs will be. CM will continue to follow and assist as needed with discharge planning / needs. Corporate Associate: Yanique Garsia DCP- Discharge Planning Updated by [email or web address]: Yanique Garsia on 02/26/19 3:[address] CM attempted to visit with patient regarding discharge planning / needs. Patient is currently on vent / sedated and no family available. CM attempted to get in touch with POA listed but no answer. CM will continue to follow and assist as needed with discharge planning / needs. DCPIA - Discharge Planning Initial Assessment Updated by [email or web address]: Yanique Garsia on 03/01/19 6:57 pm * Is the patient Alert and Oriented? Yes * How many steps to enter\exit or inside your home? * PCP Dr. Jake Smith * Pharmacy [facility] * Preadmission Environment Home Alone * ADLs Independent * Equipment Rolling Walker * List name and contact numbers for known caregivers / representatives who currently or will assist patient after discharge: JOSE MARIA MANZO [facility] - [phone] * Verbal permission to speak to the caregivers and representatives has been obtained from the patient. N/A * Community resources currently utilized None * Additional services required to return to the preadmission environment? No * Can the patient safely return to the preadmission environment? Yes * Has this patient been hospitalized within the prior 30 days at any hospital? No Last DP export: 03/01/19 5:59 pm Patient Name: ARTURO HERNANDEZ Page 48884 at 1906 All edits/amendments must be made on the electronic document DICTATION DATE: 03/01/191904 LOOM MECHANIC: ANAYELI 03/01/191904 RPT#: [id number] DC DATE: STATUS: ADM IN [facility] [address] [place] [address] END OF REPORT
--- NOTE | 2019-03-01 22:43 | NUR ---
REPOSITIONED IN BED FOR COMFORT. PILLOWS PLACED UNDER ARMS AND LEGS. PT DENIES PAIN OR NEEDS, BED LOW, CL IN REACH.
[2019-03-02] VITALS: BP 140/55
[2019-03-02 04:00] VITALS: BP 142/61
[2019-03-02 06:06] LABS: BASOPHILS 0.2 % (0-2); EOSINOPHILS 1.5 % (0-7); HEMATOCRIT 26.2 % (36.0-48.0); HEMOGLOBIN 8.6 g/dL (12-16); IMMATURE GRANULOCYTES 0.5 % (0-5); LYMPHOCYTES 9.5 % (15-50); MCH 30.5 pg (26.0-34.0); MCHC 32.8 g/dL (31.0-37.0); MEAN PLATELET VOLUME 10.2 fL (7.4-10.4); MONOCYTES 7.7 % (2-11); NEUTROPHILS 80.6 % (40-80); PLATELET COUNT 100 10x3/uL (130-400); RBC 2.82 10x6/uL (4.00-5.40); WBC 8.4 10x3/uL (4.8-10.8)
[2019-03-02 06:08] LABS: ALBUMIN 1.8 g/dL (3.4-5.0); ANION GAP 6.9 mmol/L (8-16); BILIRUBIN - TOTAL 1.49 mg/dL (0.2-1.3); CALCIUM 8.1 mg/dL (8.5-10.1); CREATININE - SERUM 0.8 mg/dL (0.6-1.3); MAGNESIUM - SERUM 1.6 mg/dL (1.8-2.4); PHOSPHOROUS 3.5 mg/dL (2.5-4.9); POTASSIUM - SERUM 3.9 mmol/L (3.5-5.1); PROTEIN - SERUM 4.6 g/dL (6.4-8.2)
[2019-03-02 06:09] LABS: MCV 92.9 fL (80.0-100.0)
[2019-03-02 07:57] VITALS: BP 154/66
--- NOTE | 2019-03-02 09:53 | NUR ---
UP SOB WITH PT ASSIST. CONFUSION NOTED. TELEMETRY PACED. ON 1ST STEP MATRESS WITH CALL LIGHT IN REACH. WILL CONT. PLAN OF CARE.
[2019-03-02 11:18] VITALS: BP 147/71
--- NOTE | 2019-03-02 11:43 | NUR ---
Rehab Note- Acute Inpatient Acute Rehab prescreening received. The patient has pending consults- including [facility]. Will continue to follow at this time. The patient appears to be a good inpatient acute rehab candidiate. Thank you for this referral! Diana Medina RN CLinical Liaison, [facility]
--- NOTE | 2019-03-02 12:10 | MORECARE ---
CASE MANAGEMENT DISCHARGE SUMMARY PATIENT: ARTURO HERNANDEZ UNIT: [id number] ADM DATE: 02/25/19 AGE: 73 : 43 SEX: F ROOM/BED: D.6523 AUTHOR: BUSHRA,DOC PHYSICIAN: REFERRING PHYSICIAN: STEVIE ALMANZAR MD DATE OF SERVICE: 03/02/19 Discharge Plan Patient Name: ARTURO HERNANDEZ Facility: [facility]:[place] : 1945 Planned Disposition: Inpatient Rehab Anticipated Discharge Date: Discharge Date: Expected LOS: Initial Reviewer: [email or web address] Initial Review Date: 03/01/2019 Generated: 03/02/19 1:09 pm Comments DCP- Discharge Planning Updated by [email or web address]: Yanique Garsia on 03/01/19 6:[address] Patient Name: ARTURO HERNANDEZ Admission Status: ER Accout number: [id number] Admission Date: 02-25-2019 : 1945 Admission Diagnosis:CARDIAC ARREST, CAUSE UNSPECIFIED Attending: STEVIE ALMANZAR Current LOS: 4 Anticipated DC Date: Planned Disposition: Primary Insurance: MEDICARE A & B Discharge Planning Comments: CM met called and spoke with Jose Maria HARDY to complete initial dc planning assessment. Patient is alert but confused. CM educated Jose Maria on the CM role and verbal consent given by patient to complete assessment. Patient lives at home alone where she is independent with her care. Jose Maria stated the patient has a rolling walker with seat but no other medical equipment at home. Jose Maria stated that she hasn't had any home health care recently. Jose Maria asked if patient was going into Rehab. CM explained that CM was uncertain of what patient's needs will be. CM will continue to follow and assist as needed with discharge planning / needs. Spark Tester: Yanique Garsia DCP- Discharge Planning Updated by [email or web address]: Yanique Garsia on 02/26/19 3:[address] CM attempted to visit with patient regarding discharge planning / needs. Patient is currently on vent / sedated and no family available. CM attempted to get in touch with POA listed but no answer. CM will continue to follow and assist as needed with discharge planning / needs. DCPIA - Discharge Planning Initial Assessment Updated by [email or web address]: Yanique Garsia on 03/01/19 6:57 pm * Is the patient Alert and Oriented? Yes * How many steps to enter\exit or inside your home? * PCP Dr. Jake Smith * Pharmacy [facility] * Preadmission Environment Home Alone * ADLs Independent * Equipment Rolling Walker * List name and contact numbers for known caregivers / representatives who currently or will assist patient after discharge: JOSE MARIA MANZO [facility] - [phone] * Verbal permission to speak to the caregivers and representatives has been obtained from the patient. N/A * Community resources currently utilized None * Additional services required to return to the preadmission environment? No * Can the patient safely return to the preadmission environment? Yes * Has this patient been hospitalized within the prior 30 days at any hospital? No Last DP export: 03/01/19 6:06 pm Patient Name: ARTURO HERNANDEZ Page [phone] at 1210 All edits/amendments must be made on the electronic document DICTATION DATE: 03/02/19 1209 JEWELRY CASTING MODEL MAKER: ANAYELI 03/02/19 1209 RPT#: [id number] DC DATE: STATUS: ADM IN [facility] [address] [place] [address] END OF REPORT
--- NOTE | 2019-03-02 12:18 | MORECARE ---
CASE MANAGEMENT DISCHARGE SUMMARY PATIENT: ARTURO HERNANDEZ UNIT: [id number] ADM DATE: 02/25/19 AGE: 73 : 44 SEX: F ROOM/BED: D.9596 AUTHOR: BUSHRA,DOC PHYSICIAN: REFERRING PHYSICIAN: STEVIE ALMANZAR MD DATE OF SERVICE: 03/02/19 Discharge Plan Patient Name: ARTURO HERNANDEZ Facility: [facility]:[place] : 1945 Planned Disposition: Inpatient Rehab Anticipated Discharge Date: Discharge Date: Expected LOS: Initial Reviewer: [email or web address] Initial Review Date: 03/01/2019 Generated: 03/02/19 1:18 pm Comments DCP- Discharge Planning Updated by [email or web address]: Liban Kat on 03/02/19 11:[address] Patient Name: ARTURO HERNANDEZ Encounter No: [id number] : 1945 Primary Insurance: MEDICARE A & B Anticipated DC Date: Planned Disposition: Inpatient Rehab External Planned Provider: [facility] DCP follow-up note: CM SPOKE TO PHYSICAL THERAPIST WHO INFORMED CM THAT PT MAY BE A GOOD INPATIENT REHAB CANDIDATE, DEPENDING ON HOW MUCH HER MENTAL STATUS CLEARS UP. CM SPOKE TO PT AND DAUGHTER, RACHEL IRENE, IN ROOM REGARDING DISCHARGE PLANNING AND NEEDS. PT WAS ABLE TO RESPOND YES FOR ANSWERS. ARTURO HERNANDEZ provided verbal consent to discuss current and ongoing needs with/in the presence of: DAUGHTER RACHEL. RACHEL PROVIDED HER CELL NUMBER, . RACHEL IS IN AGREEMENT WITH [facility]. SHE IS UNSURE OF [facility] A SECOND OPTION IF DECLINED BY INPATIENT REHAB. CM EXPLAINED THAT PT WILL NEED TO BE AT A LEVEL OF FUNCTIONING TO TOLERATE AND PARTICIPATE IN THREE HOURS OF PROGRESSIVE THERAPY DAILY. RACHEL WILL SPEAK TO PT'S CYBER INCIDENT ANALYST REGARDING POWER OF CYBER INCIDENT ANALYST AND DECISION MAKING SHE FEELS THAT PT SHOULD NOT BE LIVING ALONE IN THE FUTURE. CM CALLED JOSE MARIA MANZO, POWER OF CYBER INCIDENT ANALYST, . JOSE MARIA IS IN AGREEMENT WITH [facility]. IF PT IS UNABLE TO GET INTO INPATIENT REHAB, JOSE MARIA REPORTS [place] AND A REHAB IS THERE. CM OBSERVED THIS TO BE [facility], JOSE MARIA IN AGREEMENT AND WILL DISCUSS THIS WITH PT'S DAUGHTER JOSE MARIA FEELS THAT PT'S DAUGHTER IS HERE AND CAN BETTER MAKE DECISIONS FOR PATIENT SHE IS PT'S DAUGHTER. CHOICE LETTER FOR [facility] COMPLETED. PT'S DAUGHER AND POWER OF CYBER INCIDENT ANALYST ARE IN AGREEMENT FOR REHAB AT [facility]. IF PT IS NOT ACCEPTED FOR INPATIENT REHAB, BACK UP REHAB PLAN IS [facility]. CM TO CONTINUE TO FOLLOW AND ASSIST NEEDED. Liban Kat, CASE MANAGEMENT DCP- Discharge Planning Updated by [email or web address]: Yanique Garsia on 03/01/19 6:[address] Patient Name: ARTURO HERNANDEZ Admission Status: ER Accout number: [id number] Admission Date: 02-25-2019 : 1945 Admission Diagnosis:CARDIAC ARREST, CAUSE UNSPECIFIED Attending: STEVIE ALMANZAR Current LOS: 4 Anticipated DC Date: Planned Disposition: Primary Insurance: MEDICARE A & B Discharge Planning Comments: CM met called and spoke with Jose Maria HARDY to complete initial dc planning assessment. Patient is alert but confused. CM educated Jose Maria on the CM role and verbal consent given by patient to complete assessment. Patient lives at home alone where she is independent with her care. Jose Maria stated the patient has a rolling walker with seat but no other medical equipment at home. Jose Maria stated that she hasn't had any home health care recently. Jose Maria asked if patient was going into Rehab. CM explained that CM was uncertain of what patient's needs will be. CM will continue to follow and assist as needed with discharge planning / needs. Esol Teacher Assistant: Yanique Garsia DCP- Discharge Planning Updated by [email or web address]: Yanique Garsia on 02/26/19 3:[address] CM attempted to visit with patient regarding discharge planning / needs. Patient is currently on vent / sedated and no family available. CM attempted to get in touch with POA listed but no answer. CM will continue to follow and assist as needed with discharge planning / needs. DCPIA - Discharge Planning Initial Assessment Updated by [email or web address]: Yanique Garsia on 03/01/19 6:57 pm * Is the patient Alert and Oriented? Yes * How many steps to enter\exit or inside your home? * PCP Dr. Jake Smith * Pharmacy [facility] * Preadmission Environment Home Alone * ADLs Independent * Equipment Rolling Walker * List name and contact numbers for known caregivers / representatives who currently or will assist patient after discharge: JOSE MARIA MANZO - PO[facility] - [phone] * Verbal permission to speak to the caregivers and representatives has been obtained from the patient. N/A * Community resources currently utilized None * Additional services required to return to the preadmission environment? No * Can the patient safely return to the preadmission environment? Yes * Has this patient been hospitalized within the prior 30 days at any hospital? No Coverage Notice Reviewer: [email or web address] Franco Kat Notice Issued Date-Time: 03/02/2019 12:00 Notice Type: Patient Choice Letter Notice Delivered To: Other Relationship to Patient: Power of [employer] Associate Name: JOSE MARIA MANZO Delivery Method: PHONE - Phone Angela Days: Prior Verbal Notification: Recipient Understood Notice: Yes Recipient Signature: Med Rec Note Co-signed by Attending: Coverage Notice Comment: PERI LORA export: 03/02/19 11:10 am Patient Name: ARTURO HERNANDEZ Page [id number] at 1218 All edits/amendments must be made on the electronic document DICTATION DATE: 03/02/19 1218 TEMPLATE CLERK: ANAYELI 03/02/19 1218 RPT#: [id number] DC DATE: STATUS: ADM IN [facility] [address] [place] [address] END OF REPORT
--- NOTE | 2019-03-02 12:27 | MORECARE ---
CASE MANAGEMENT DISCHARGE SUMMARY PATIENT: ARTURO HERNANDEZ UNIT: [id number] ADM DATE: 02/25/19 AGE: 73 : 43 SEX: F ROOM/BED: D.8835 AUTHOR: BUSHRA,DOC PHYSICIAN: REFERRING PHYSICIAN: STEVIE ALMANZAR MD DATE OF SERVICE: 03/02/19 Discharge Plan Patient Name: ARTURO HERNANDEZ Facility: [facility]:[place] : 1945 Planned Disposition: Inpatient Rehab Anticipated Discharge Date: Discharge Date: Expected LOS: Initial Reviewer: [id number] Initial Review Date: 03/01/2019 Generated: 03/02/19 1:27 pm Comments DCP- Discharge Planning Updated by [id number]: Liban Kat on 03/02/19 11:[address] Patient Name: ARTURO HERNANDEZ Encounter No: [id number] : 1945 Primary Insurance: MEDICARE A & B Anticipated DC Date: Planned Disposition: Inpatient Rehab External Planned Provider: [facility] DCP follow-up note: CM SPOKE TO PHYSICAL THERAPIST WHO INFORMED CM THAT PT MAY BE A GOOD INPATIENT REHAB CANDIDATE, DEPENDING ON HOW MUCH HER MENTAL STATUS CLEARS UP. CM SPOKE TO PT AND DAUGHTER, RACHEL IRENE, IN ROOM REGARDING DISCHARGE PLANNING AND NEEDS. PT WAS ABLE TO RESPOND YES FOR ANSWERS. ARTURO HERNANDEZ provided verbal consent to discuss current and ongoing needs with/in the presence of: DAUGHTER RACHEL. RACHEL PROVIDED HER CELL NUMBER, . RACHEL IS IN AGREEMENT WITH REHAB AT [facility]. SHE IS UNSURE OF [facility] REHAB[facility] A SECOND OPTION IF DECLINED BY INPATIENT REHAB. CM EXPLAINED THAT PT WILL NEED TO BE AT A LEVEL OF FUNCTIONING TO TOLERATE AND PARTICIPATE IN THREE HOURS OF PROGRESSIVE THERAPY DAILY. RACHEL WILL SPEAK TO PT'S MEAT TEAM MEMBER REGARDING POWER OF MEAT TEAM MEMBER AND DECISION MAKING SHE FEELS THAT PT SHOULD NOT BE LIVING ALONE IN THE FUTURE. CM CALLED JOSE MARIA MANZO, POWER OF MEAT TEAM MEMBER, . JOSE MARIA IS IN AGREEMENT WITH REHAB AT [facility]. IF PT IS UNABLE TO GET INTO INPATIENT REHAB, JOSE MARIA REPORTS PT LIVES IN [place] AND A REHAB IS THERE. CM OBSERVED THIS TO BE [place], JOSE MARIA IN AGREEMENT AND WILL DISCUSS THIS WITH PT'S DAUGHTER JOSE MARIA FEELS THAT PT'S DAUGHTER IS HERE AND CAN BETTER MAKE DECISIONS FOR PATIENT SHE IS PT'S DAUGHTER. CHOICE LETTER FOR PERI BELL COMPLETED. PT'S DAUGHER AND POWER OF MEAT TEAM MEMBER ARE IN AGREEMENT FOR REHAB AT [facility]. IF PT IS NOT ACCEPTED FOR INPATIENT REHAB, BACK UP REHAB PLAN IS [facility]. CM TO CONTINUE TO FOLLOW AND ASSIST NEEDED. Liban Kat, CASE MANAGEMENT DCP- Discharge Planning Updated by [email or web address]: Yanique Garsia on 03/01/19 6:[address] Patient Name: ARTURO HERNANDEZ Admission Status: ER Accout number: [id number] Admission Date: 02-25-2019 : 1945 Admission Diagnosis:CARDIAC ARREST, CAUSE UNSPECIFIED Attending: STEVIE ALMANZAR Current LOS: 4 Anticipated DC Date: Planned Disposition: Primary Insurance: MEDICARE A & B Discharge Planning Comments: CM met called and spoke with Jose Maria HARDY to complete initial dc planning assessment. Patient is alert but confused. CM educated Jose Maria on the CM role and verbal consent given by patient to complete assessment. Patient lives at home alone where she is independent with her care. Jose Maria stated the patient has a rolling walker with seat but no other medical equipment at home. Jose Maria stated that she hasn't had any home health care recently. Jose Maria asked if patient was going into Rehab. CM explained that CM was uncertain of what patient's needs will be. CM will continue to follow and assist as needed with discharge planning / needs. Maintainability Engineer: Yanique Garsia DCP- Discharge Planning Updated by [id number]: Yanique Garsia on 02/26/19 3:[address] CM attempted to visit with patient regarding discharge planning / needs. Patient is currently on vent / sedated and no family available. CM attempted to get in touch with POA listed but no answer. CM will continue to follow and assist as needed with discharge planning / needs. DCPIA - Discharge Planning Initial Assessment Updated by [email or web address]: Liban Kat on 03/02/19 12:20 pm * Is the patient Alert and Oriented? Yes * How many steps to enter\exit or inside your home? * PCP Dr. Jake Smith * Pharmacy [facility] * Preadmission Environment Home Alone * ADLs Independent * Equipment Rolling Walker * List name and contact numbers for known caregivers / representatives who currently or will assist patient after discharge: JOSE MARIA MANZO - [facility] - [phone] RACHEL CARDONAGADO, R, * Verbal permission to speak to the caregivers and representatives has been obtained from the patient. N/A * Community resources currently utilized None * Additional services required to return to the preadmission environment? No * Can the patient safely return to the preadmission environment? Yes * Has this patient been hospitalized within the prior 30 days at any hospital? No Coverage Notice Reviewer: [id number] Franco Kat Notice Issued Date-Time: 03/02/2019 12:00 Notice Type: Patient Choice Letter Notice Delivered To: Other Relationship to Patient: Power of Boilers And Pressure Vessels Inspector Cement Block Maker Name: JOSE MARIA MANZO Delivery Method: PHONE - Phone Angela Days: Prior Verbal Notification: Recipient Understood Notice: Yes Recipient Signature: Med Rec Note Co-signed by Attending: Coverage Notice Comment: PERI Dudley DP export: 03/02/19 11:18 am Patient Name: ARTURO HERNANDEZ Page [id number] at 1227 All edits/amendments must be made on the electronic document DICTATION DATE: 03/02/19 1227 CORPORATE CONCIERGE: ANAYELI 03/02/19 1227 RPT#: [id number] DC DATE: STATUS: ADM IN [facility] [address] [place] [address] END OF REPORT
--- NOTE | 2019-03-02 15:18 | MORECARE ---
CASE MANAGEMENT DISCHARGE SUMMARY PATIENT: ARTURO HERNANDEZ UNIT: [id number] ADM DATE: 02/25/19 AGE: 73 : 44 SEX: F ROOM/BED: D.3889 AUTHOR: BUSHRA,DOC PHYSICIAN: REFERRING PHYSICIAN: STEVIE ALMANZAR MD DATE OF SERVICE: 03/02/19 Discharge Plan Patient Name: ARTURO HERNANDEZ Facility: [facility]:[place] : 1945 Planned Disposition: Inpatient Rehab Anticipated Discharge Date: Discharge Date: Expected LOS: Initial Reviewer: [email or web address] Initial Review Date: 03/01/2019 Generated: 03/02/19 4:18 pm Comments DCP- Discharge Planning Updated by [email or web address]: Liban Kat on 03/02/19 2:[address] Patient Name: ARTURO HERNANDEZ Encounter No: [id number] : 1945 Primary Insurance: MEDICARE A & B Anticipated DC Date: Planned Disposition: Inpatient Rehab External Planned Provider: [facility] CM RECEIVED CALL FROM JOSE MARIA MANZO, POWER OF PIGGERY WORKER, . JOSE MARIA FEELS THAT PT'S DAUGHTER IS HERE AND CAN BETTER MAKE DECISIONS FOR PATIENT SHE IS PT'S DAUGHTER. JOSE MARIA WILL DISCUSS THIS WITH PT'S DAUGHTER AND PIGGERY WORKER AND THINKS THAT SHE (JOSE MARIA) WILL WITHDRAW MEDICAL POWER OF PIGGERY WORKER. PT'S DAUGHER AND POWER OF PIGGERY WORKER ARE IN AGREEMENT FOR REHAB AT [facility]. IF PT IS NOT ACCEPTED FOR INPATIENT REHAB, BACK UP REHAB PLAN IS [facility]. CM TO CONTINUE TO FOLLOW AND ASSIST NEEDED. Liban Kat, CASE MANAGEMENT DCP- Discharge Planning Updated by [id number]: Liban Kat on 03/02/19 11:[address] Patient Name: ARTURO HERNANDEZ Encounter No: [id number] : 1945 Primary Insurance: MEDICARE A & B Anticipated DC Date: Planned Disposition: Inpatient Rehab External Planned Provider: [facility] DCP follow-up note: CM SPOKE TO PHYSICAL THERAPIST WHO INFORMED CM THAT PT MAY BE A GOOD INPATIENT REHAB CANDIDATE, DEPENDING ON HOW MUCH HER MENTAL STATUS CLEARS UP. CM SPOKE TO PT AND DAUGHTER, RACHEL IRENE, IN ROOM REGARDING DISCHARGE PLANNING AND NEEDS. PT WAS ABLE TO RESPOND YES FOR ANSWERS. ARTURO HERNANDEZ provided verbal consent to discuss current and ongoing needs with/in the presence of: DAUGHTER RACHEL. RACHEL PROVIDED HER CELL NUMBER, . RACHEL IS IN AGREEMENT WITH REHAB AT [place]. SHE IS UNSURE OF [facility] A SECOND OPTION IF DECLINED BY INPATIENT REHAB. CM EXPLAINED THAT PT WILL NEED TO BE AT A LEVEL OF FUNCTIONING TO TOLERATE AND PARTICIPATE IN THREE HOURS OF PROGRESSIVE THERAPY DAILY. RACHEL WILL SPEAK TO PT'S PIGGERY WORKER REGARDING POWER OF PIGGERY WORKER AND DECISION MAKING SHE FEELS THAT PT SHOULD NOT BE LIVING ALONE IN THE FUTURE. CM CALLED JOSE MARIA MANZO POWER OF PIGGERY WORKER, . JOSE MARIA IS IN AGREEMENT WITH REHAB AT [place]. IF PT IS UNABLE TO GET INTO INPATIENT REHAB, JOSE MARIA REPORTS PT LIVES IN [place] AND A REHAB IS THERE. CM OBSERVED THIS TO BE PERI BELL, JOSE MARIA IN AGREEMENT AND WILL DISCUSS THIS WITH PT'S DAUGHTER JOSE MARIA FEELS THAT PT'S DAUGHTER IS HERE AND CAN BETTER MAKE DECISIONS FOR PATIENT SHE IS PT'S DAUGHTER. CHOICE LETTER FOR PERI MORMONISM COMPLETED. PT'S DAUGHER AND POWER OF PIGGERY WORKER ARE IN AGREEMENT FOR REHAB AT [facility]. IF PT IS NOT ACCEPTED FOR INPATIENT REHAB, BACK UP REHAB PLAN IS [facility]. CM TO CONTINUE TO FOLLOW AND ASSIST NEEDED. Liban Kat, CASE MANAGEMENT DCP- Discharge Planning Updated by [email or web address]: Yanique Garsia on 03/01/19 6:[address] Patient Name: ARTURO HERNANDEZ Admission Status: ER Accout number: [id number] Admission Date: 02-25-2019 : 1945 Admission Diagnosis:CARDIAC ARREST, CAUSE UNSPECIFIED Attending: STEVIE ALMANZAR Current LOS: 4 Anticipated DC Date: Planned Disposition: Primary Insurance: MEDICARE A & B Discharge Planning Comments: CM met called and spoke with Jose Maria HARDY to complete initial dc planning assessment. Patient is alert but confused. CM educated Jose Maria on the CM role and verbal consent given by patient to complete assessment. Patient lives at home alone where she is independent with her care. Jose Maria stated the patient has a rolling walker with seat but no other medical equipment at home. Jose Maria stated that she hasn't had any home health care recently. Jose Maria asked if patient was going into Rehab. CM explained that CM was uncertain of what patient's needs will be. CM will continue to follow and assist as needed with discharge planning / needs. Hand Grinder: Yanique Garsia DCP- Discharge Planning Updated by [id number]: Yanique Garsia on 02/26/19 3:[address] CM attempted to visit with patient regarding discharge planning / needs. Patient is currently on vent / sedated and no family available. CM attempted to get in touch with POA listed but no answer. CM will continue to follow and assist as needed with discharge planning / needs. DCPIA - Discharge Planning Initial Assessment Updated by [email or web address]: Liban Kat on 03/02/19 12:20 pm * Is the patient Alert and Oriented? Yes * How many steps to enter\exit or inside your home? * PCP Dr. Jake Smith * Pharmacy [facility] * Preadmission Environment Home Alone * ADLs Independent * Equipment Rolling Walker * List name and contact numbers for known caregivers / representatives who currently or will assist patient after discharge: JOSE MARIA MANZO - A - [phone] RACHEL IRENE R, * Verbal permission to speak to the caregivers and representatives has been obtained from the patient. N/A * Community resources currently utilized None * Additional services required to return to the preadmission environment? No * Can the patient safely return to the preadmission environment? Yes * Has this patient been hospitalized within the prior 30 days at any hospital? No Coverage Notice Reviewer: [id number] - Liban Kat Notice Issued Date-Time: 03/02/2019 12:00 Notice Type: Patient Choice Letter Notice Delivered To: Other Relationship to Patient: Power of Cafeteria Cook Donkey Doctor Name: JOSE MARIA MANZO Delivery Method: PHONE - Phone Angela Days: Prior Verbal Notification: Recipient Understood Notice: Yes Recipient Signature: Med Rec Note Co-signed by Attending: Coverage Notice Comment: PERI LORA export: 03/02/19 11:27 am Patient Name: ARTURO HERNANDEZ Page 51864 at 1518 All edits/amendments must be made on the electronic document DICTATION DATE: 03/02/191517 INSTRUMENT REPAIR SPECIALIST: ANAYELI 03/02/191517 RPT#: [id number] DC DATE: STATUS: ADM IN [facility] [address] [place] [address] END OF REPORT
--- NOTE | 2019-03-02 17:00 | NUR ---
CONT. TO TRY AND GET UP OOB. DAUGHTER AT BS WORRIED HER MOTHER MAY JUMP OOB. BLU DE ANDA NOTIFIED. GEODON GIVEN AND PLACED IN NET BED. WILL CONT. TO MONITOR.
--- NOTE | 2019-03-02 18:05 | NUR ---
NO PULSE, NO RESP. DR. THOMPSON NOTIFIED. DAUGHTER AND POA ALSO NOTIFIED.
--- NOTE | 2019-03-02 19:00 | NUR ---
UPON ARRIVAL FOR MY SHIFT PATIENT HAD ALREADY . WAS TOLD BY PRIOR RN THAT [facility] HAD BEEN CALLED AND WAITING FOR THEM TO CALL BACK AND [facility] NOTIFIED. ALL OTHER PAPERWORK HAD BEEN COMPLETED. I WAS TOLD BY PRIOR NURSE THAT POA AND DAUGHTER HAD BEEN CALLED AND THAT FAMILY WAS ON THE WAY. I RECEIVED A CALL FROM [facility] STATING THAT THEY WERE ON THERE WAY. HOME HAD ARRIVED BUT FAMILY WAS NOT HERE. I CALLED DAUGHTER, SHE STATED, " SHE WAS NOT COMING TO THE HOSPITAL. SHE DID NOT WANT TO SEE HER LIKE THAT". DAUGHTER (RACHEL) IF THEY WERE ABLE TO COME IN AM TO CONTINUITY CLERK BELONGING".
--- NOTE | 2019-03-02 20:11 | NUR ---
PATIENT RELEASED TO HOME.
--- NOTE | 2019-03-03 08:22 | MORECARE ---
CASE MANAGEMENT DISCHARGE SUMMARY PATIENT: ARTURO HERNANDEZ UNIT: [id number] ADM DATE: 02/25/19 AGE: 73 : 44 SEX: F ROOM/BED: D.0279 AUTHOR: BUSHRA,DOC PHYSICIAN: REFERRING PHYSICIAN: STEVIE ALMANZAR MD DATE OF SERVICE: 03/03/19 Discharge Plan Patient Name: ARTURO HERNANDEZ Facility: [facility]:[place] : 1945 Planned Disposition: Inpatient Rehab Anticipated Discharge Date: 03/02/19 Discharge Date: 03/02/2019 Expected LOS: 5 Initial Reviewer: [id number] Initial Review Date: 03/01/2019 Generated: 03/03/19 9:22 am Comments DCP- Discharge Planning Updated by [id number]: Liban Kat on 03/03/19 7:[address] Patient Name: ARTURO HERNANDEZ Encounter No: [id number] : 1945 Primary Insurance: MEDICARE A & B Anticipated DC Date: 03-02-2019 Planned Disposition: DCP follow-up note: CM REVIEWED CHART, PT HAS . LILIAN Castanon DCP- Discharge Planning Updated by [email or web address]: Liban Kat on 03/02/19 2:[address] Patient Name: ARTURO HERNANDEZ Encounter No: [id number] : 1945 Primary Insurance: MEDICARE A & B Anticipated DC Date: Planned Disposition: Inpatient Rehab External Planned Provider: [facility] CM RECEIVED CALL FROM JOSE MARIA MANZO, POWER OF WIRE FENCE BUILDER, . JOSE MARIA FEELS THAT PT'S DAUGHTER IS HERE AND CAN BETTER MAKE DECISIONS FOR PATIENT SHE IS PT'S DAUGHTER. JOSE MARIA WILL DISCUSS THIS WITH PT'S DAUGHTER AND WIRE FENCE BUILDER AND THINKS THAT SHE (JOSE MARIA) WILL WITHDRAW MEDICAL POWER OF WIRE FENCE BUILDER. PT'S DAUGHER AND POWER OF WIRE FENCE BUILDER ARE IN AGREEMENT FOR REHAB AT [facility]. IF PT IS NOT ACCEPTED FOR INPATIENT REHAB, BACK UP REHAB PLAN IS [facility]. CM TO CONTINUE TO FOLLOW AND ASSIST NEEDED. Liban North, CASE MANAGEMENT DCP- Discharge Planning Updated by [email or web address]: Liban Kat on 03/02/19 11:[address] Patient Name: ARTURO HERNANDEZ Encounter No: [id number] : 1945 Primary Insurance: MEDICARE A & B Anticipated DC Date: Planned Disposition: Inpatient Rehab External Planned Provider: [facility] DCP follow-up note: CM SPOKE TO PHYSICAL THERAPIST WHO INFORMED CM THAT PT MAY BE A GOOD INPATIENT REHAB CANDIDATE, DEPENDING ON HOW MUCH HER MENTAL STATUS CLEARS UP. CM SPOKE TO PT AND DAUGHTER, RACHEL IRENE, IN ROOM REGARDING DISCHARGE PLANNING AND NEEDS. PT WAS ABLE TO RESPOND YES FOR ANSWERS. ARTURO HERNANDEZ provided verbal consent to discuss current and ongoing needs with/in the presence of: DAUGHTER RACHEL. RACHEL PROVIDED HER CELL NUMBER, . RACHEL IS IN AGREEMENT WITH REHAB AT [facility]. SHE IS UNSURE OF [facility] A SECOND OPTION IF DECLINED BY INPATIENT REHAB. CM EXPLAINED THAT PT WILL NEED TO BE AT A LEVEL OF FUNCTIONING TO TOLERATE AND PARTICIPATE IN THREE HOURS OF PROGRESSIVE THERAPY DAILY. RACHEL WILL SPEAK TO PT'S WIRE FENCE BUILDER REGARDING POWER OF WIRE FENCE BUILDER AND DECISION MAKING SHE FEELS THAT PT SHOULD NOT BE LIVING ALONE IN THE FUTURE. CM CALLED JOSE MARIA MANZO, POWER OF WIRE FENCE BUILDER, . JOSE MARIA IS IN AGREEMENT WITH REHAB AT [facility]. IF PT IS UNABLE TO GET INTO INPATIENT REHAB, JOSE MARIA REPORTS PT LIVES IN [place] AND A REHAB IS THERE. CM OBSERVED THIS TO BE JOSE MARIA ROBERSON IN AGREEMENT AND WILL DISCUSS THIS WITH PT'S DAUGHTER JOSE MARIA FEELS THAT PT'S DAUGHTER IS HERE AND CAN BETTER MAKE DECISIONS FOR PATIENT SHE IS PT'S DAUGHTER. CHOICE LETTER FOR PERI BELL COMPLETED. PT'S DAUGHER AND POWER OF WIRE FENCE BUILDER ARE IN AGREEMENT FOR REHAB AT [facility]. IF PT IS NOT ACCEPTED FOR INPATIENT REHAB, BACK UP REHAB PLAN IS [facility]. CM TO CONTINUE TO FOLLOW AND ASSIST NEEDED. Liban Kat CASE MANAGEMENT DCP- Discharge Planning Updated by [id number]: Yanique Garsia on 03/01/19 6:[address] Patient Name: ARTURO HERNANDEZ Admission Status: ER Accout number: [id number] Admission Date: 02-25-2019 : 1945 Admission Diagnosis:CARDIAC ARREST, CAUSE UNSPECIFIED Attending: STEVIE ALMANZAR Current LOS: 4 Anticipated DC Date: Planned Disposition: Primary Insurance: MEDICARE A & B Discharge Planning Comments: CM met called and spoke with Jose Maria HARDY to complete initial dc planning assessment. Patient is alert but confused. CM educated Jose Maria on the CM role and verbal consent given by patient to complete assessment. Patient lives at home alone where she is independent with her care. Jose Maria stated the patient has a rolling walker with seat but no other medical equipment at home. Jose Maria stated that she hasn't had any home health care recently. Jose Maria asked if patient was going into Rehab. CM explained that CM was uncertain of what patient's needs will be. CM will continue to follow and assist as needed with discharge planning / needs. Load Test Mechanic: Yanique Garsia DCP- Discharge Planning Updated by [email or web address]: Yanique Garsia on 02/26/19 3:[address] CM attempted to visit with patient regarding discharge planning / needs. Patient is currently on vent / sedated and no family available. CM attempted to get in touch with POA listed but no answer. CM will continue to follow and assist as needed with discharge planning / needs. DCPIA - Discharge Planning Initial Assessment Updated by [email or web address]: Liban Kat on 03/02/19 12:20 pm * Is the patient Alert and Oriented? Yes * How many steps to enter\exit or inside your home? * PCP Dr. Jake Smith * Pharmacy [facility] * Preadmission Environment Home Alone * ADLs Independent * Equipment Rolling Walker * List name and contact numbers for known caregivers / representatives who currently or will assist patient after discharge: JOSE MARIA MANZO - ANTONY - [phone] RACHEL IRENE DTR, * Verbal permission to speak to the caregivers and representatives has been obtained from the patient. N/A * Community resources currently utilized None * Additional services required to return to the preadmission environment? No * Can the patient safely return to the preadmission environment? Yes * Has this patient been hospitalized within the prior 30 days at any hospital? No Coverage Notice Reviewer: [id number] Franco Kat Notice Issued Date-Time: 03/02/2019 12:00 Notice Type: Patient Choice Letter Notice Delivered To: Other Relationship to Patient: Power of Employment Interviewer Optics Manufacturing Technician Name: JOSE MARIA MANZO Delivery Method: PHONE - Phone Angela Days: Prior Verbal Notification: Recipient Understood Notice: Yes Recipient Signature: Med Rec Note Co-signed by Attending: Coverage Notice Comment: PERI LORA export: 03/02/19 2:18 pm Patient Name: ARTURO HERNANDEZ Page 17572 at 0822 All edits/amendments must be made on the electronic document DICTATION DATE: 03/03/19821 BRANCH MAKER: ANAYELI 03/03/19821 RPT#: [id number] DC DATE:03/02/19 STATUS: DIS IN [facility] [address] [place] [address] END OF REPORT
--- NOTE | 2019-03-04 09:12 | MORECARE ---
CASE MANAGEMENT DISCHARGE SUMMARY PATIENT: ARTURO HERNANDEZ UNIT: [id number] ADM DATE: 02/25/19 AGE: 73 : 43 SEX: F ROOM/BED: D.8749 AUTHOR: BUSHRA,DOC PHYSICIAN: REFERRING PHYSICIAN: STEVIE ALMANZAR MD DATE OF SERVICE: 03/04/19 Discharge Plan Patient Name: ARTURO HERNANDEZ Facility: [facility]:[place] : 1945 Planned Disposition: Inpatient Rehab Anticipated Discharge Date: 03/02/19 Discharge Date: 03/02/2019 Expected LOS: 5 Initial Reviewer: [id number] Initial Review Date: 03/01/2019 Generated: 03/04/19 10:12 am Comments DCP- Discharge Planning Updated by [email or web address]: Liban Kat on 03/03/19 7:[address] Patient Name: ARTURO HERNANDEZ Encounter No: [id number] : 1945 Primary Insurance: MEDICARE A & B Anticipated DC Date: 03-02-2019 Planned Disposition: DCP follow-up note: CM REVIEWED CHART, PT HAS . LILIAN Castanon DCP- Discharge Planning Updated by [email or web address]: Liban Kat on 03/02/19 2:[address] Patient Name: ARTURO HERNANDEZ Encounter No: [id number] : 1945 Primary Insurance: MEDICARE A & B Anticipated DC Date: Planned Disposition: Inpatient Rehab External Planned Provider: [facility] CM RECEIVED CALL FROM JOSE MARIA MANZO, POWER OF CHEMICAL MILLING PROCESSOR, . JOSE MARIA FEELS THAT PT'S DAUGHTER IS HERE AND CAN BETTER MAKE DECISIONS FOR PATIENT SHE IS PT'S DAUGHTER. JOSE MARIA WILL DISCUSS THIS WITH PT'S DAUGHTER AND CHEMICAL MILLING PROCESSOR AND THINKS THAT SHE (JOSE MARIA) WILL WITHDRAW MEDICAL POWER OF CHEMICAL MILLING PROCESSOR. PT'S DAUGHER AND POWER OF CHEMICAL MILLING PROCESSOR ARE IN AGREEMENT FOR REHAB AT [facility]. IF PT IS NOT ACCEPTED FOR INPATIENT REHAB, BACK UP REHAB PLAN IS [facility]. CM TO CONTINUE TO FOLLOW AND ASSIST NEEDED. Liban [place], CASE MANAGEMENT DCP- Discharge Planning Updated by [email or web address]: Liban Kat on 03/02/19 11:[address] Patient Name: ARTURO HERNANDEZ Encounter No: [id number] : 1945 Primary Insurance: MEDICARE A & B Anticipated DC Date: Planned Disposition: Inpatient Rehab External Planned Provider: [facility] DCP follow-up note: CM SPOKE TO PHYSICAL THERAPIST WHO INFORMED CM THAT PT MAY BE A GOOD INPATIENT REHAB CANDIDATE, DEPENDING ON HOW MUCH HER MENTAL STATUS CLEARS UP. CM SPOKE TO PT AND DAUGHTER, RACHEL IRENE, IN ROOM REGARDING DISCHARGE PLANNING AND NEEDS. PT WAS ABLE TO RESPOND YES FOR ANSWERS. ARTURO HERNANDEZ provided verbal consent to discuss current and ongoing needs with/in the presence of: DAUGHTER RACHEL. RACHEL PROVIDED HER CELL NUMBER, . RACHEL IS IN AGREEMENT WITH REHAB AT [place]. SHE IS UNSURE OF [facility] A SECOND OPTION IF DECLINED BY INPATIENT REHAB. CM EXPLAINED THAT PT WILL NEED TO BE AT A LEVEL OF FUNCTIONING TO TOLERATE AND PARTICIPATE IN THREE HOURS OF PROGRESSIVE THERAPY DAILY. RACHEL WILL SPEAK TO PT'S CHEMICAL MILLING PROCESSOR REGARDING POWER OF CHEMICAL MILLING PROCESSOR AND DECISION MAKING SHE FEELS THAT PT SHOULD NOT BE LIVING ALONE IN THE FUTURE. CM CALLED JOSE MARIA MANZO, POWER OF CHEMICAL MILLING PROCESSOR, . JOSE MARIA IS IN AGREEMENT WITH REHAB AT [place]. IF PT IS UNABLE TO GET INTO INPATIENT REHAB, JOSE MARIA REPORTS PT LIVES IN [place] AND A REHAB IS THERE. CM OBSERVED THIS TO BE JOSE MARIA ROBERSON IN AGREEMENT AND WILL DISCUSS THIS WITH PT'S DAUGHTER JOSE MARIA FEELS THAT PT'S DAUGHTER IS HERE AND CAN BETTER MAKE DECISIONS FOR PATIENT SHE IS PT'S DAUGHTER. CHOICE LETTER FOR [facility] COMPLETED. PT'S DAUGHER AND POWER OF CHEMICAL MILLING PROCESSOR ARE IN AGREEMENT FOR REHAB AT [facility]. IF PT IS NOT ACCEPTED FOR INPATIENT REHAB, BACK UP REHAB PLAN IS [facility]. CM TO CONTINUE TO FOLLOW AND ASSIST NEEDED. Liban Kat CASE MANAGEMENT DCP- Discharge Planning Updated by [id number]: Yanique Garsia on 03/01/19 6:[address] Patient Name: ARTURO HERNANDEZ Admission Status: ER Accout number: [id number] Admission Date: 02-25-2019 : 1945 Admission Diagnosis:CARDIAC ARREST, CAUSE UNSPECIFIED Attending: STEVIE ALMANZAR Current LOS: 4 Anticipated DC Date: Planned Disposition: Primary Insurance: MEDICARE A & B Discharge Planning Comments: CM met called and spoke with Jose Maria HARDY to complete initial dc planning assessment. Patient is alert but confused. CM educated Jose Maria on the CM role and verbal consent given by patient to complete assessment. Patient lives at home alone where she is independent with her care. Jose Maria stated the patient has a rolling walker with seat but no other medical equipment at home. Jose Maria stated that she hasn't had any home health care recently. Jose Maria asked if patient was going into Rehab. CM explained that CM was uncertain of what patient's needs will be. CM will continue to follow and assist as needed with discharge planning / needs. Cook Helper Dessert: Yanique Garsia DCP- Discharge Planning Updated by [email or web address]: Yanique Garsia on 02/26/19 3:[address] CM attempted to visit with patient regarding discharge planning / needs. Patient is currently on vent / sedated and no family available. CM attempted to get in touch with POA listed but no answer. CM will continue to follow and assist as needed with discharge planning / needs. DCPIA - Discharge Planning Initial Assessment Updated by [id number]: Liban Kat on 03/02/19 12:20 pm * Is the patient Alert and Oriented? Yes * How many steps to enter\exit or inside your home? * PCP Dr. Jake Smith * Pharmacy [facility] * Preadmission Environment Home Alone * ADLs Independent * Equipment Rolling Walker * List name and contact numbers for known caregivers / representatives who currently or will assist patient after discharge: JOSE MARIA MANZO - ANTONY - [phone] RACHEL IRENE DTR, * Verbal permission to speak to the caregivers and representatives has been obtained from the patient. N/A * Community resources currently utilized None * Additional services required to return to the preadmission environment? No * Can the patient safely return to the preadmission environment? Yes * Has this patient been hospitalized within the prior 30 days at any hospital? No Coverage Notice Reviewer: [id number] Franco Kat Notice Issued Date-Time: 03/02/2019 12:00 Notice Type: Patient Choice Letter Notice Delivered To: Other Relationship to Patient: Power of Clearance Coordinator [employer] Name: JOSE MARIA MANZO Delivery Method: PHONE - Phone Angela Days: Prior Verbal Notification: Recipient Understood Notice: Yes Recipient Signature: Med Rec Note Co-signed by Attending: Coverage Notice Comment: PERI LORA export: 03/03/19 7:22 am Patient Name: ARTURO HERNANDEZ Page [id number] at 0912 All edits/amendments must be made on the electronic document DICTATION DATE: 03/04/19911 EXPRESS MANAGER: ANAYELI 03/04/19911 RPT#: [id number] DC DATE:03/02/19 STATUS: DIS IN [facility] [address] [place] [address] END OF REPORT
--- NOTE | 2019-03-05 12:54 | NUR ---
Per CMS protocol, restraint report logged into data base.
== END 2019-03-02 20:13 | DRG 208 ==
LOC: D.ICU → D.ER 17:10 → EDBD 17:10 → D.M2 18:31 → D.ICU 18:31 → D.M2 03-01 13:36
PROVIDERS: Emergency Medicine; Family Medicine; Internal Medicine Pulmonary Disease; ADMIT Family Medicine; ATTEND Family Medicine
PROC: 5A1945Z Respiratory Ventilation, 24-96 Consecutive Hours (ICD-10-PCS; principal; 2019-02-25)
PROC: 0BH17EZ Insertion of Endotracheal Airway into Trachea, Via Natural or Artificial Opening (ICD-10-PCS; 2019-02-25)
PROC: 05H533Z Insertion of Infusion Device into Right Subclavian Vein, Percutaneous Approach (ICD-10-PCS; 2019-02-26)
PROC: B5161ZA Fluoroscopy of Right Subclavian Vein using Low Osmolar Contrast, Guidance (ICD-10-PCS; 2019-02-26)
DX: J96.01 Acute respiratory failure with hypoxia (principal); I21.4 Non-ST elevation (NSTEMI) myocardial infarction; A41.9 Sepsis, unspecified organism; E43 Unspecified severe protein-calorie malnutrition; R40.2211 Coma scale, best verbal response, none, in the field [EMT or ambulance]; R40.2112 Coma scale, eyes open, never, at arrival to emergency department; R40.2312 Coma scale, best motor response, none, at arrival to emergency department; N17.9 Acute kidney failure, unspecified; N39.0 Urinary tract infection, site not specified; G93.1 Anoxic brain damage, not elsewhere classified; R57.0 Cardiogenic shock; I46.2 Cardiac arrest due to underlying cardiac condition; I25.10 Atherosclerotic heart disease of native coronary artery without angina pectoris; I48.91 Unspecified atrial fibrillation; E87.6 Hypokalemia; J44.9 Chronic obstructive pulmonary disease, unspecified; D64.9 Anemia, unspecified; K21.9 Gastro-esophageal reflux disease without esophagitis; I10 Essential (primary) hypertension; I49.9 Cardiac arrhythmia, unspecified